=== PATIENT | female | born 1955 | race Caucasian/White ===

== ENCOUNTER 2019-05-10 09:42 | Inpatient (IN) ==
[2019-05-10] MEDS ORDERED: Acetaminophen 325 MG TABLET PO PRN (12:33)
[2019-05-10] MEDS ORDERED: Ondansetron 4 MG/2 ML VIAL IVP PRN (13:33)
[2019-05-10 13:40] LABS: Calcium 7.1 mg/dL (8.6-10.3); Potassium 4.4 mEq/L (3.5-5.1)
[2019-05-10 13:51] LABS: Troponin I 0.07 ng/mL (< 0.04)
[2019-05-10] MEDS ORDERED: Albuterol 2.5 MG/3 ML NEBULIZER IH PRN (13:54)
[2019-05-10 14:28] LABS: ABG Base Excess -12 mEq/L (-2 to 3); ABG HCO3 14 mEq/L (21-27); ABG Oxygen Saturation 83 % (95-98); ABG PCO2 32 mmHg (35-45); ABG PH 7.25 pH Units (7.32-7.45); ABG PO2 54 mmHg (85-104); ABG TCO2 15 mEq/L (20-26)
--- NOTE | 2019-05-10 14:55 | Internal Med History&Physical ---
Date of Encounter: 05/10/19 Time of Encounter: 14:52 Internal Medicine - H&P: HPI Chief complaint: SOB Admitted From: Emergency Dept ([place] [facility]) History of present illness: Zenaida Garcia is a 63 F w hx COPD, diverticulitis s/p sigmoid resection, chronic L leg pain s/p implanted neurostimulator, who p/w SOB. Patient has mumbled speech at times due to oxymask but can nod and articulate some answers. No family present. Patient states that she noticed shortness of breath begin about 2 days ago, feeling in general just malaise since then, working to breath, and eventually had to come to ER today for her symptoms. This is associated with increased cough but without sputum production. She has noticed subjective fever/chills. She also remarks on decreased urine output despite insisting that she has continued to eat and drink. No N/V/D. She denies sick contacts. She also does mention that her stimulator battery and she is having significant pain in her L leg. In the ED, patient vitals T99.1, HR 125, RR 28, SBP 140, satting 87% on 4L. Labs notable for WBC 1.6 w 10% blasts, Hb 15, plt 300, INR 1.7, K 4.5, Cr 2.9, BUN 50, CO2 12, lactate 5, Phos 7.3. ABG showing pH 7.34, pCO2 23, pO2 55 on 4L. Past medical, surgical, social, and family histories reviewed and updated as below, with addition to FHx of lung problems as well as cancer but not leukemia/lymphoma. Past Med Surg Social Fam HX - Past Medical History Medical history: COPD, DVT, other Additional medical history: chronic sciatica Psychiatric history: no psych history - Past Surgical History Surgical History: other Additional surgical history: neurostimulator to back-permanent. bowel resection - Social History Smoking Status: Former smoker Smokeless Tobacco Status: No Alcohol use: none Drug use: none Internal Medicine - H&P: Meds Acetylcysteine [Nac] 600 mg PO DAILY 02/19/18 [History] Budesonide/Formoterol 160/4.5 [Symbicort 160/4.5] 2 puff IH BIDR 02/19/18 [History] Albuterol Neb [Proventil Neb] 2.5 mg IH Q4HR PRN 05/10/19 [History] Albuterol Sulfate [Ventolin Hfa] 2 puff IH Q4H PRN 05/10/19 [History] Tiotropium [Spiriva] 2 puff IH 0700 05/10/19 [History] Allergy/AdvReac Type Severity Reaction Status Date / Time Cephalosporins Allergy Hives Verified 05/10/19 08:17 Penicillins Allergy Hives Verified 05/10/19 08:17 Sulfa (Sulfonamide Allergy Hives Verified 05/10/19 08:17 Antibiotics) All Systems PM: A 10-system review of systems was performed and is negative for pertinent findings except as documented above in the HPI. - Constitutional Vitals: Temp Pulse Resp BP Pulse Ox 97.7 F 107 22 105/64 93 05/10/19 11:57 05/10/19 12:18 05/10/19 12:07 05/10/19 11:57 05/10/19 12:07 Exam: General: good eye contact, cachectic and emaciated, tachypneic, working to breath Head: Atraumatic, normocephalic. Face symmetric Eyes: EOMI, sclerae anicteric ENT: Mucous membranes dry. Normal oral mucosa. Trachea midline. No cervical lymphadenopathy Thoracic: Diminished aeration, diffuse mild expiratory wheezes, does have LLL coarse inspiratory component Cardio: Normal S1 and S2, regular rate, tachycardic Abdomen: Soft, nontender, nondistended Extremities: Warm, well perfused. DP pulses 2+ b/l. No clubbing, cyanosis. No edema. Legs incredibly thin. Skin: Intact. No rashes, bruises, or ulcers Neuro: Awake, fully oriented. Decent memory, concentration, attention. Speech is not fluent, very mumbled even when not on facemask, does comprehend questions and no drooping or motor deficits, CN II-XII grossly intact Internal Med - H&P Results - Labs CBC & Chem 7: 05/10/19 13:05 Labs: BMP 05/10/19 13:05 Sodium 137 Potassium 4.4 Chloride 107 Carbon Dioxide 13 L BUN 50 H Creatinine 2.37 H Glucose 42 L Calcium 7.1 L Cardiac Enzymes 05/10/19 Range/Units 13:05 Troponin I 0.07 H* (< 0.04) ng/mL - ABG Interpretation ABG results: 05/10/19 14:23 ABG pH 7.25 L ABG pCO2 32 L ABG pO2 54 L ABG HCO3 14 L ABG Total CO2 15 L ABG O2 Saturation 83 L ABG Base Excess -12 L - Summary of Assessment and Plan Summary of Assessment and Plan: Zenaida Garcia is a 63 F w hx COPD, diverticulitis s/p sigmoid resection, chronic L leg pain s/p implanted neurostimulator, who p/w SOB, hypoxia, leukocytosis, elevated Cr and lactate, and CXR w bibasilar infiltrates, suggestive of pneumonia causing severe sepsis, ARNOLDO, acute hypoxic respiratory failure. CAP: bibasilar infiltrates on CXR, given empiric aztreonam/levaquin/vanc at OSH ED due to listed allergies to B-lactams (hives) - RVP, procal, UAg's, nasal MRSA - empiric levaquin 750 q48h Acute hypoxic respiratory failure: at one point requiring [place] to maintain sats >88% but on arrival here is oxymask 10 - repeat ABG - supplemental O2 and consider CPAP to ease work of breathing due to worsening acidosis on repeat ABG - IS - treat cause as above - walk test prior to discharge Severe sepsis: SIRS 3/4 (Tmax 99.1), suspected infection as above, lactate elevated - BCx x2 pending - fluid boluses prn hypotension - empiric abx as above COPD in acute exacerbation: severe emphysema on CXR - nebs q4h&prn - prednisone 40 daily x5d, s/p solumedrol 125 in ED - home inhalers ARNOLDO: baseline Cr ~0.6-0.7, on admit is 2.9 - fluids as above - monitor UOP and Cr Lactic acidosis (anion gap metabolic acidosis): 2/2 infection and hypoxia above, expect to improve with oxygenation and fluids and abx - trend lactate Leukopenia: 10% between myelocytes and metamyelocytes - repeat CBC & diff - peripheral smear Coagulopathy: with leukopenia and immature cells above, will recheck INR and check D-dimer and fibrinogen Hyperphosphatemia: with leukopenia and immature cells above, will check uric acid and LDH Elevated troponin: ECG at [place] reads as scattered ST elevations suggestive of pericarditis; patient without CP at all. In context of hypoxia, likely demand ischemia. - tele - trend trops - repeat ECG - echo Chronic pain: stimulator battery , will give low dose oxycodone Underweight: BMI 16, likely 2/2 COPD, nutrition consult PPx: sqh Tele: yes Activity: up ad feroz FEN: regular, no MIVF Lines: PIV Consults: Code: Full Dispo: patient requires inpatient eval and management at this time, anticipate 2-3 days, will be homegoing
[2019-05-10] MEDS ORDERED: *HR* OxyCODONE Immed Rel 5 MG TABLET PO PRN (15:53)
[2019-05-10 18:03] LABS: Magnesium 2.8 mg/dL (1.6-2.6); Phosphorous 6.2 mg/dL (2.7-4.5); Uric Acid 4.2 mg/dL (2.3-7.6)
[2019-05-10 18:10] LABS: Adenovirus Not Detected (Not Detect); Bordetella Pertussis Not Detected (Not Detect); Chlamydophila pneumoniae Not Detected (Not Detect); Coronavirus 229E Not Detected (Not Detect); Coronavirus HKU1 Not Detected (Not Detect); Coronavirus NL63 Not Detected (Not Detect); Coronavirus OC43 Not Detected (Not Detect); Human Metapneumovirus Not Detected (Not Detect); Human Rhinovirus/Enterovirus DETECTED (Not Detect); Influenza A Subtype 2009 H1 Not Detected (Not Detect); Influenza A Untypeable Not Detected (Not Detect); Influenza B Not Detected (Not Detect); Mycoplasma pneumoniae Not Detected (Not Detect); Parainfluenza Virus 1 Not Detected (Not Detect); Parainfluenza Virus 2 Not Detected (Not Detect); Parainfluenza Virus 3 Not Detected (Not Detect); Parainfluenza Virus 4 Not Detected (Not Detect); Respiratory Syncytial Virus Not Detected (Not Detect)
[2019-05-10] MEDS: *HR* Heparin 5,000 UNIT/ML VIAL SQ SCH ×2 (19:01→22:02)
[2019-05-10] MEDS: FentaNYL (PF) 1,000 MCG in 0.9 % Sodium Chloride 80 ML IVC SCH (19:04)
--- NOTE | 2019-05-10 19:11 | Procedure Note ---
Date of procedure: 05/10/19 Pre-op diagnosis: hypotension, sepsis Post-op diagnosis: same Procedure: RIJ CVC Patient prepped and draped in sterile fashion. Maximal 5 point barriers used. Time-out called prior to procedure. No allergies. Indications for CVC met for hypotension and poor access. Chloraprep used. Sterile ultrasound used to identify obvious compressible IJ with carotid visible medially. No local anesthesia. Needle inserted easily into IJ under US, with return of dark venous blood. Guidewire inserted without resistance. US confirms venous placement in long axis view. After quick skin fatimah with scalpel, dilator inserted easily, followed by insertion of CVC over guidewire. Good blood return, easily flushed. Sutured to skin. CXR obtained which confirms appropriate placement in cavoatrial junction, and no PTX. Patient tolerated well with no complications. Anesthesia: IV sedation Surgeon: Rey Romero Was there an certified teacher assistant present: Yes Coal Shoveler: Rivera Cornejo Estimated blood loss (cc): 5 Specimen: none Pathology: none sent Condition: critical Disposition: ICU
[2019-05-10] MEDS ORDERED: 0.9 % Sodium Chloride 1,000 ML IVC SCH (20:30)
[2019-05-10] MEDS: Budesonide/Formoterol 160/4.5 1 PUFF INH IH SCH (20:41)
[2019-05-10] MEDS ORDERED: D5% in 0.45% NACL 1,000 ML IVC SCH (20:45)
[2019-05-10 20:56] LABS: Bilirubin,Urine Small (Negative); Blood,Urine Large (Negative); Clarity,Urine Turbid (Clear); Color,Urine Dark Yellow (Yellow); Glucose,Urine (UA) Normal (Normal); Ketones,Urine Negative (Negative); Leukocyte Esterase,Urine Negative (Negative); Nitrite,Urine Negative (Negative); PH,Urine 5.5 pH Units (5.0-8.0); Protein,Urine 100 mg/dL (Neg-Trace); Specific Gravity,Urine 1.024 (1.010-1.025); Urobilinogen,Urine Normal (Normal)
[2019-05-10] MEDS ORDERED: Vancomycin 500 MG in 0.9 % Sodium Chloride 250 ML IVPB SCH (21:00)
[2019-05-10 21:06] LABS: Hyaline Casts,Urine Few per lpf (None-Few); Squamous Epithelial Cell,Urine Many per lpf (None-Few)
[2019-05-10 21:15] LABS: Mean Corpuscular Hemoglobin 28.8 pg (28.0-33.3)
[2019-05-10 21:16] LABS: Amorphous Sediment,Urine Moderate (Few); Bacteria,Urine Many per hpf (None-Few)
[2019-05-10 21:16] LABS: Hematocrit 37.4 % (35.3-44.9); Hemoglobin 10.9 g/dL (11.5-15.4); Mean Corpuscular HGB Conc 29.1 g/dL (31.6-35.5); Mean Corpuscular Volume 98.9 fL (83.0-100.0); Mean Platelet Volume 9.8 fL (9.4-12.4); Monocytes # 0.1 K/mcL (0.0-1.3); Platelet Count 244 K/mcL (140-400); Red Blood Count 3.78 M/mcL (3.82-4.97); Red Cell Distribution Width 16.9 % (11.5-14.5); White Blood Count 1.3 K/mcL (4.3-11.1)
[2019-05-10 21:25] LABS: INR 2.4; Prothrombin Time 27.1 Seconds (9.4-12.1)
[2019-05-10 21:39] LABS: Calcium 6.2 mg/dL (8.6-10.3); Potassium 5.7 mEq/L (3.5-5.1)
[2019-05-10] MEDS: *HR* Dextrose 50 % in Water (Syg) 50 ML SYRINGE IVP STA (21:43)
[2019-05-10 22:16] LABS: Eosinophils # 0.1 K/mcL (0.0-0.6); Lymphocytes # 0.3 K/mcL (0.6-4.6); Neutrophils # 0.9 K/mcL (1.6-8.9)
[2019-05-10 22:18] LABS: Anisocytosis 1+ (Not Present)
[2019-05-10 22:19] LABS: Acanthocytes 1+ (Not Present); Platelet Estimate Normal (Normal)
[2019-05-10] MEDS ORDERED: Calcium Gluconate 2,000 MG in 0.9 % Sodium Chloride 100 ML IVPB ONE (23:09)
[2019-05-11] MEDS: FentaNYL (PF) 1,000 MCG in 0.9 % Sodium Chloride 80 ML IVC SCH ×3 (00:57→21:21)
[2019-05-11] MEDS ORDERED: *HR* Dextrose 50 % in Water (Syg) 50 ML SYRINGE IVP ONE ×3 (04:07→12:42)
[2019-05-11] MEDS ORDERED: 0.9 % Sodium Chloride 1,000 ML IVC ONE ×2 (04:08→05:34)
[2019-05-11] MEDS ORDERED: Artificial Tears SOLN 15 ML BOTTLE BOTH EYES PRN (04:17)
[2019-05-11] MEDS ORDERED: Naloxone 0.4 MG/ML INJ IVP PRN (04:19)
[2019-05-11] MEDS: Norepinephrine 4 MG in 0.9 % Sodium Chloride 250 ML IVC SCH ×2 (04:38→10:49)
[2019-05-11] MEDS ORDERED: Sodium Bicarbonate 50 MEQ/50 ML VIAL ONE (04:46)
[2019-05-11] MEDS ORDERED: *HR* LORazepam 2 MG/ML VIAL ONE (04:48)
[2019-05-11 04:49] LABS: ABG Base Excess -18 mEq/L (-2 to 3); ABG HCO3 14 mEq/L (21-27); ABG Oxygen Saturation 97 % (95-98); ABG PCO2 62 mmHg (35-45); ABG PH 6.95 pH Units (7.32-7.45); ABG PO2 137 mmHg (85-104); ABG TCO2 15 mEq/L (20-26); Blood Gas Modality ASSIST CONTROL; Blood Gas PEEP 5 cm H2O; Blood Gas VT 400 cc
[2019-05-11] MEDS ORDERED: *HR* LORazepam 2 MG/ML VIAL IVP ONE (04:50)
[2019-05-11 04:56] LABS: Mean Platelet Volume 9.7 fL (9.4-12.4); Nucleated Red Blood Cells 4.5 /100 WBC (0); White Blood Count 1.6 K/mcL (4.3-11.1)
[2019-05-11 04:57] LABS: Hematocrit 30.5 % (35.3-44.9); Hemoglobin 8.3 g/dL (11.5-15.4); Mean Corpuscular HGB Conc 27.2 g/dL (31.6-35.5); Mean Corpuscular Hemoglobin 28.5 pg (28.0-33.3); Mean Corpuscular Volume 104.8 fL (83.0-100.0); Platelet Count 226 K/mcL (140-400); Red Blood Count 2.91 M/mcL (3.82-4.97); Red Cell Distribution Width 17.2 % (11.5-14.5)
[2019-05-11 04:59] LABS: VBG HCO3 14 mEq/L (21-27); VBG PCO2 82 mmHg (41-51); VBG PH 6.84 pH Units (7.32-7.42); VBG PO2 74 mmHg (25-50)
[2019-05-11] MEDS ORDERED: 0.9 % Sodium Chloride 1,000 ML ONE ×2 (05:11→05:21)
[2019-05-11 05:17] LABS: Albumin 2.1 g/dL (3.5-5.7); Albumin/Globulin Ratio 1.1 (1.1-2.2); Bilirubin,Direct 0.2 mg/dL (0.0-0.2); Bilirubin,Indirect 0.2 mg/dL (0.0-1.2); Bilirubin,Total 0.4 mg/dL (0.3-1.0); Phosphorous 10.1 mg/dL (2.7-4.5); Total Protein 4.1 g/dL (6.4-8.9)
[2019-05-11 05:19] LABS: Calcium 6.1 mg/dL (8.6-10.3); INR 2.8; Magnesium 2.8 mg/dL (1.6-2.6); Potassium 7.7 mEq/L (3.5-5.1); Prothrombin Time 31.5 Seconds (9.4-12.1); Troponin I 0.16 ng/mL (< 0.04)
[2019-05-11] MEDS ORDERED: Sodium Bicarbonate 50 MEQ/50 ML VIAL IVP ONE (05:24)
[2019-05-11] MEDS ORDERED: Albuterol 2.5 MG/3 ML NEBULIZER IH ONE (05:26)
[2019-05-11] MEDS ORDERED: Calcium Gluconate 2,000 MG in 0.9 % Sodium Chloride 100 ML IVPB ONE (05:28)
[2019-05-11] MEDS ORDERED: Insulin Human Regular 5 UNIT, Sodium Bicarbonate 50 MEQ in D10% in Water 500 ML IVC ONE (05:28)
[2019-05-11 05:32] LABS: Lymphocytes # 0.5 K/mcL (0.6-4.6); Monocytes # 0.2 K/mcL (0.0-1.3)
[2019-05-11 05:33] LABS: Anisocytosis 1+ (Not Present); Burr Cells 1+ (Not Present); Platelet Estimate Normal (Normal)
[2019-05-11] MEDS: *HR* Heparin 5,000 UNIT/ML VIAL SQ SCH (05:43)
[2019-05-11] MEDS ORDERED: 0.9 % Sodium Chloride 500 ML IV ONE (05:44)
[2019-05-11] MEDS ORDERED: 0.9 % Sodium Chloride 500 ML IVC ONE (05:45)
--- NOTE | 2019-05-11 06:04 | Event Note ---
<Michael Hahn - Last Filed: 05/11/19 06:15> Date of Encounter: 05/11/19 Time of Encounter: 05:56 Resident physician was called to bedside due to patient becoming hypotensive suddenly this morning. The patient has had soft blood pressures in the 90/70 range while maintaining a map of greater than 65 throughout the evening. He was noted that she had mottling in her lower extremities which was somewhat relieved with blankets and a bear hugger, however along with the patient's hypotension she was noted to have mottling in her upper extremities as well and became very pale. 1 L saline bolus was initiated immediately with Levophed ordered, an ABG was done stat and morning labs had been drawn just prior to this episode. It appeared that the patient's right pupil was approximately 4 mm with left pupil being 2 mm and sluggish to reactivity, was noted with propofol drip was decreased due to hypotension however the patient appeared to be waking up and was biting at the tube and thus propofol was reinitiated. During this time the patient began to exhibit seizure activity with right-sided upper and lower ext remity tremor as well as ocular gyration. 2 mg of Ativan were given immediately along with the increase in propofol which appeared to stop the seizure activity. Patient was taken for a stat head CT and chest x-ray. Head CT read by comes radiology as no acute intracranial pathology, chest x-ray shows continuation of multifocal pneumonia. The patient's ABG was noted to show a respiratory acidosi s with a pH of 6.95, PCO2 of 62 and a bicarbonate of 14. One amp of bicarbonate was given immediately, the patient's potassium was noted to be 7.7 with peaked T waves on EKG and no further abnormalities, 15 mL albuterol were given in addition to initiating insulin/glucose drip at 2 g of calcium gluconate. Patient's creatinine was found to be elevated at 2.7 which is not typical for this patient her baseline nephrology was consulted regarding the need for emergent dialysis and states that they agree with our plan for medical management at this time and have no further recommendations for intervention. Troponin was found to be elevated however there are no ischemic changes noted on EKG. Nephrology and neurology consults were placed. Family at bedside were notified of the patient's expected course and they will be discussing their understanding of the patient's wishes regarding further CODE STATUS. <Wilton Banda - Last Filed: 05/11/19 06:58> Date of Encounter: 05/11/19 - Attending Attestation I saw evaluated and examined this patient and reviewed objective data including labs and my medical decision-making was reviewed with the Resident Physician. I agree with the documented findings, disposition and treatment plan as described except to any changes set forth below. We independently had leei-[id number] contact with the patient.
[2019-05-11] MEDS: Vasopressin 40 UNIT in D5% in Water 100 ML IVC SCH ×2 (06:41→23:35)
[2019-05-11 06:42] LABS: ABG Base Excess -14 mEq/L (-2 to 3); ABG HCO3 15 mEq/L (21-27); ABG Oxygen Saturation 100 % (95-98); ABG PCO2 49 mmHg (35-45); ABG PO2 241 mmHg (85-104); ABG TCO2 17 mEq/L (20-26); Blood Gas Modality ASSIST CONTROL; Blood Gas PEEP 5 cm H2O; Blood Gas VT 450 cc
[2019-05-11] MEDS ORDERED: methylPREDNISolone 125 MG/2 ML VIAL IVP ONE (07:56)
[2019-05-11 08:00] LABS: ABG Base Excess -15 mEq/L (-2 to 3); ABG HCO3 13 mEq/L (21-27); ABG Oxygen Saturation 89 % (95-98); ABG PCO2 40 mmHg (35-45); ABG PH 7.13 pH Units (7.32-7.45); ABG PO2 74 mmHg (85-104); ABG TCO2 14 mEq/L (20-26); Blood Gas Modality VC; Blood Gas PEEP 8 cm H2O; Blood Gas VT 450 cc
[2019-05-11] MEDS ORDERED: Albuterol 2.5 MG/3 ML NEBULIZER IH PRN (08:00)
[2019-05-11] MEDS: Tiotropium 18 MCG inhalation IH SCH (08:44)
[2019-05-11] MEDS: Chlorhexidine Rinse 15 ML MOUTHWASH MM SCH ×2 (08:47→20:32)
[2019-05-11] MEDS: Artificial Tears SOLN 15 ML BOTTLE BOTH EYES SCH ×5 (08:47→23:34)
[2019-05-11] MEDS: Ipratropium/Albuterol Neb 3 ML IH SCH ×5 (08:55→23:51)
[2019-05-11] MEDS: Budesonide/Formoterol 160/4.5 1 PUFF INH IH SCH ×2 (08:55→19:48)
[2019-05-11 09:17] LABS: Calcium 6.5 mg/dL (8.6-10.3); Potassium 5.4 mEq/L (3.5-5.1); Troponin I 0.18 ng/mL (< 0.04)
--- NOTE | 2019-05-11 09:25 | Pulmonology Consult Note ---
<Delmar Gill W - Last Filed: 05/11/19 10:26> Date of Encounter: 05/11/19 Medications and Allergies Acetylcysteine [Nac] 600 mg PO DAILY 02/19/18 [History] Budesonide/Formoterol 160/4.5 [Symbicort 160/4.5] 2 puff IH BIDR 02/19/18 [History] Albuterol Neb [Proventil Neb] 2.5 mg IH Q4HR PRN 05/10/19 [History] Albuterol Sulfate [Ventolin Hfa] 2 puff IH Q4H PRN 05/10/19 [History] Tiotropium [Spiriva] 2 puff IH 0700 05/10/19 [History] Allergy/AdvReac Type Severity Reaction Status Date / Time Cephalosporins Allergy Hives Verified 05/10/19 08:17 Penicillins Allergy Hives Verified 05/10/19 08:17 Sulfa (Sulfonamide Allergy Hives Verified 05/10/19 08:17 Antibiotics) All Systems: The remainder of the systems were reviewed and are negative Physical Examination Vital Signs: Vital Signs, Last 4 Hours Temp Pulse Resp BP Pulse Ox 05/11/19 08:55 24 89/51 94 05/11/19 08:00 99 24 121/66 96 05/11/19 07:38 97.6 F Ventilator Settings Ventilator Settings: Ventilator Settings, Last 8 Hours Ventilator Tidal Volume 450 Setting Ventilator Tidal Volume 450 Setting Ventilator Tidal Volume 450 Setting Ventilator Tidal Volume 450 Setting Ventilator Tidal Volume 450 Setting Ventilator Tidal Volume 450 Setting Ventilator Tidal Volume 400 Setting Ventilator Tidal Volume 450 Setting Ventilator Tidal Volume 450 Setting Ventilator Tidal Volume 400 Setting Ventilator Tidal Volume 400 Setting Ventilator Tidal Volume 400 Setting Ventilator Respiratory Rate 24 Setting Ventilator Respiratory Rate 24 Setting Ventilator Respiratory Rate 22 Setting Ventilator Respiratory Rate 22 Setting Ventilator Respiratory Rate 16 Setting Ventilator Respiratory Rate 16 Setting Ventilator Respiratory Rate 14 Setting Ventilator Respiratory Rate 14 Setting Ventilator Respiratory Rate 16 Setting Ventilator Respiratory Rate 14 Setting Ventilator Respiratory Rate 14 Setting Ventilator Respiratory Rate 14 Setting Actual Respiratory Rate 24 Actual Respiratory Rate 24 Actual Respiratory Rate 22 Actual Respiratory Rate 16 Actual Respiratory Rate 16 Actual Respiratory Rate 15 Actual Respiratory Rate 15 Actual Respiratory Rate 14 Positive End Expiratory 8 Pressure Positive End Expiratory 8 Pressure Positive End Expiratory 8 Pressure Positive End Expiratory 8 Pressure Positive End Expiratory 5 Pressure Positive End Expiratory 5 Pressure Positive End Expiratory 5 Pressure Positive End Expiratory 5 Pressure Positive End Expiratory 5 Pressure Positive End Expiratory 5 Pressure Positive End Expiratory 5 Pressure Peak Inspiratory Airway 30 Pressure Peak Inspiratory Airway 29 Pressure Peak Inspiratory Airway 28 Pressure Peak Inspiratory Airway 22 Pressure Peak Inspiratory Airway 15 Pressure Peak Inspiratory Airway 15 Pressure Peak Inspiratory Airway 14 Pressure Peak Inspiratory Airway 12 Pressure Results - Laboratory Findings CBC and BMP: 05/11/19 04:28 05/11/19 08:22 ABG ABG pH 7.13 pH Units (7.32-7.45) L* 05/11/19 07:55 ABG pCO2 40 mmHg (35-45) 05/11/19 07:55 ABG pO2 74 mmHg (85-104) L D 05/11/19 07:55 ABG O2 Saturation 89 % (95-98) L 05/11/19 07:55 PT/INR, D-dimer PT 31.5 Seconds (9.4-12.1) H 05/11/19 04:28 D-Dimer 5867 ng/mLFEU (0-500) H 05/10/19 20:54 Abnormal lab findings: Abnormal lab results WBC 1.6 K/mcL (4.3-11.1) L 05/11/19 04:28 RBC 2.91 M/mcL (3.82-4.97) L 05/11/19 04:28 Hgb 8.3 g/dL (11.5-15.4) L D 05/11/19 04:28 Hct 30.5 % (35.3-44.9) L 05/11/19 04:28 MCV 104.8 fL (83.0-100.0) H 05/11/19 04:28 MCHC 27.2 g/dL (31.6-35.5) L 05/11/19 04:28 RDW 17.2 % (11.5-14.5) H 05/11/19 04:28 Band Neutrophils % 18.0 % (0-4) H 05/11/19 04:28 Metamyelocytes % 2.0 % (0) H 05/11/19 04:28 Neutrophils # 1.0 K/mcL (1.6-8.9) L 05/11/19 04:28 Lymphocytes # 0.5 K/mcL (0.6-4.6) L 05/11/19 04:28 Nucleated RBCs/100 WBC 4.5 /100 WBC (0) H 05/11/19 04:28 Anisocytosis 1+ (Not Present) A 05/11/19 04:28 [place] Cells 1+ (Not Present) A 05/11/19 04:28 Acanthocytes (Spur) 1+ (Not Present) A 05/10/19 20:54 PT 31.5 Seconds (9.4-12.1) H 05/11/19 04:28 APTT 54.7 Seconds (26.0-36.0) H 05/10/19 22:22 Fibrinogen 792 mg/dL (169-393) H* 05/10/19 20:54 D-Dimer 5867 ng/mLFEU (0-500) H 05/10/19 20:54 ABG pH 7.13 pH Units (7.32-7.45) L* 05/11/19 07:55 ABG pCO2 49 mmHg (35-45) H 05/11/19 06:38 ABG pO2 74 mmHg (85-104) L D 05/11/19 07:55 ABG HCO3 13 mEq/L (21-27) L 05/11/19 07:55 ABG Total CO2 14 mEq/L (20-26) L 05/11/19 07:55 ABG O2 Saturation 89 % (95-98) L 05/11/19 07:55 ABG Base Excess -15 mEq/L (-2 to 3) L 05/11/19 07:55 VBG pH 6.84 pH Units (7.32-7.42) L* 05/11/19 04:54 VBG pCO2 82 mmHg (41-51) H* 05/11/19 04:54 VBG pO2 74 mmHg (25-50) H 05/11/19 04:54 VBG HCO3 14 mEq/L (21-27) L 05/11/19 04:54 Sodium 129 mEq/L (136-145) L D 05/11/19 04:28 Potassium 5.4 mEq/L (3.5-5.1) H D 05/11/19 08:22 Carbon Dioxide 14 mEq/L (23-29) L 05/11/19 08:22 BUN 58 mg/dL (8-23) H 05/11/19 08:22 Creatinine 2.56 mg/dL (0.60-1.20) H 05/11/19 08:22 Est GFR ( Amer) 23 (> 60) L 05/11/19 08:22 Est GFR (Non-Af Amer) 19 (> 60) L 05/11/19 08:22 Glucose 155 mg/dL (70-105) H 05/11/19 08:22 POC Glucose 201 mg/dL (70-99) H 05/11/19 04:55 Calculated Osmolality 301 (280-300) H 05/11/19 08:22 Lactic Acid 3.1 mmol/L (0.5-2.2) H 05/11/19 04:28 Calcium 6.5 mg/dL (8.6-10.3) L 05/11/19 08:22 Phosphorus 10.1 mg/dL (2.7-4.5) H 05/11/19 04:28 Magnesium 2.8 mg/dL (1.6-2.6) H 05/11/19 04:28 AST 177 Units/L (13-39) H 05/11/19 04:28 Creatine Kinase 71994 Units/L (30-223) H 05/11/19 04:28 Troponin I 0.18 ng/mL (< 0.04) H* 05/11/19 08:22 Serum Total Protein 4.1 g/dL (6.4-8.9) L 05/11/19 04:28 Albumin 2.1 g/dL (3.5-5.7) L 05/11/19 04:28 Globulin 2.0 g/dL (2.4-3.5) L 05/11/19 04:28 Procalcitonin > 100.00 ng/mL (0.00-0.15) H 05/10/19 16:22 Urine Clarity Turbid (Clear) A 05/10/19 20:38 Urine Protein 100 mg/dL (Neg-Trace) H 05/10/19 20:38 Urine Blood Large (Negative) H 05/10/19 20:38 Urine Bilirubin Small (Negative) H 05/10/19 20:38 Urine Microscopic RBC 3-5 per hpf (0-3) H 05/10/19 20:38 Urine Microscopic WBC 5-15 per hpf (0-3) H 05/10/19 20:38 Ur Squamous Epith Cells Many per lpf (None-Few) H 05/10/19 20:38 Amorphous Sediment Moderate (Few) H 05/10/19 20:38 Urine Bacteria Many per hpf (None-Few) H 05/10/19 20:38 Ur Culture Indicated? YES (NO) A 05/10/19 20:38 Entero/Rhino (PCR) DETECTED (Not Detect) A 05/10/19 17:00 - Microbiology Findings Microbiology Findings: Microbiology, Last 48 Hours 05/10/19 20:38 Urine Culture - Preliminary Urine,Catheterized (Straight) Culture is incubating. - Clinical Findings Intake & Output: Intake & Output 05/10/19 05/11/19 05/11/19 23:59 07:59 15:59 Intake Total 1036 / 1036 4354.05 / 4386.05 32 / 4386.05 Output Total 195 / 195 200 / 200 Balance 841 / 841 4154.05 / 4186.05 32 / 4186.05 Consult Discharge Plan - Plan Referrals: Donna Patterson MD [Primary Care Provider] - - Attending Attestation I examined this patient and my medical decision-making was reviewed with the Resident Physician. I agree with the documented findings, disposition and treatment plan as described except to the extent set forth below. We independently had [id number] contact with the patient I spent 63min of Critical Care time with this patient. It involved decision making of high complexity to assess, manipulate, and support vital organ system failure and/or to prevent further life threatening deterioration of the patient's condition. The time involved in the performance of separately reportable procedures was not counted toward critical care time. Patient seen and examined at bedside Labs, radiology, chart personally reviewed. Management was reviewed during multidisciplinary critical care rounds. ORDER ENTRY REPRESENTATIVE: Acute toxic/metabolic encephalopathy now sedated on vent Pulm: Acute on chronic hypoxic hypercapnic respiratory failure secondary to pneumonia with COPD exacerbation we will increase her minute ventilation to accommodate for metabolic acidosis continue low tidal volume ventilatory strategy her peak and plateau pressures are acceptable COPD management with bronchodilators and steroids Cards: Distributive shock secondary to sepsis with lactic acidosis and multiorgan dysfunction syndrome (MODS) she is on vasopressor support I performed bedside ultrasonography and evaluated her IVC under positive pressure which was noted to have greater than 50% collapsibility with her breathing cycle indicating volume responsiveness and additional crystalloid bolus was ordered. Continues to assess for her volume status and trend lactate goal map around 65 GI: GI prophylaxis while on vent she has abdominal distention and sending for CT of the abdomen Nutrition: nothing by mouth for now Renal: Acute kidney injury remains and uric we will check CPK she has life- threatening hyperkalemia and this is been medically managed we will consult nephrology high likelihood patient will need renal replacement therapy. UOP Monitored, Cont to Trend sCr and monitor Electrolytes. ID: septic shock of unclear etiology likely pneumonia possibly of viral infection was bacterial coinfection cannot rule out intra-abdominal process on broad-spectrum antibiotics I have added double coverage for Pseudomonas and anaerobic coverage given the severity of illness and Procardia also 200 greater than 100. Heme/Onc: Mechanical DVT prophylaxis given she has mild coagulopathy likely secondary to her critical illness platelets are stable Endo: Glucose Monitored Integ/MSK: Skin Care per routine ICU Nursing Protocol to prevent ulcers. Lines: All lines examined without evidence of infection : Dispo: Monitor in ICU for critical illness CODE: Full Code. The patient's next of kin including her 2 nephews were present in the room along with the nephews of who is a ICU nurse. Met with them because patient does not have any family close to her except those in the room and has an estranged son but they have not spoken in many years and negative family feels that he may in fact be incarcerated. The patient did not have any specific conversations regarding goals of care are advanced directives and a situation like this and so I explained that it would be reasonable to pursue aggressive measures at least for 48 hours although she is critically ill with prognosis guarded at best. I went over the different options for management including comfort measures all the way to full aggressive measures and she will remain full code at this time. Likely psych social worker and palliative care consultation based upon clinical course and QUESTIONS were answered at the bedside.The patient is unable or incompetent to participate in giving a history and/or making treatment decisions. The discussion was necessary for determining treatment decision. This discussion took place in the ICU. The total meeting time was [20 minutes] <Rey Romero - Last Filed: 05/11/19 12:52> Date of Encounter: 05/11/19 Time of Encounter: 09:44 Assessment and Plan (1) Acute respiratory failure Current Visit: Yes Status: Acute Presented to ICU from floor with acute respiratory failure. Likely 2/2 to pneumonia and septic shock. Also likely COPD exacerbation. CXR showed diffuse airspace opacities, worst in L lung base. Noted to have WBC of 1.2, lactate 2.4, PCT >100. Plan: - Intubated and sedated on fentanyl/propofol, vent bundle ordered - Started vanc/levaquin on 05/10; added aztreonam and flagyl 05/11 - Scheduled bronchodilators and steroids - Daily ABGs, cont to monitor vitals and respiratory status Qualifiers: Respiratory failure complication: hypoxia and hypercapnia Qualified Code(s): J96.01 - Acute respiratory failure with hypoxia; J96.02 - Acute respiratory failure with hypercapnia (2) Acute metabolic encephalopathy Current Visit: Yes Status: Acute Worsening mental status associated with worsening respiratory status and septic shock. Likely due to acute resp failure, hyperkalemia, lactic acidosis, ARNOLDO with increased Cr, hypoglycemia Intubated/sedated for resp failure. Plan: - On fentanyl/propofol - Cont to treat infection and electrolyte abnormalities - Cont monitoring glucose, hypoglycemia protocol - Cont to monitor mental status (3) Septic shock Current Visit: Yes Status: Acute Septic shock 2/2 to PNA, acute resp failure. Hypotensive. Received 4 L NS bolus for blood pressure support. Started on levophed for hypotension. R IJ CVC placed. Elevated Cr, LFTs, troponins indicated shock with multiple organ dysfunction. Bedside US showed greater than 50% collapsibility, fluid responsive. Noted to have WBC of 1.2, lactate 2.4, PCT >100. Plan: - On vanc, levaquin, aztreonam, flagyl for abx coverage - Possible abdominal process, ischemic colitis on CT scan - Surgery consulted for evaluation - Blood and urine cultures pending, showing gram positive cocci - Cont to monitor trops, BMP, and LFTs (4) Bilateral pneumonia Current Visit: Yes Status: Acute PNA noted on CXR. Presented with resp distress. Resp panel positive for enter/rhinovirus. Likely bacterial superinfection. Plan: - See plan above for resp failure and septic shock Qualifiers: Pneumonia type: due to unspecified organism Lung location: unspecified part of lung Qualified Code(s): J18.9 - Pneumonia, unspecified organism (5) ARNOLDO (acute kidney injury) Current Visit: Yes Status: Acute ARNOLDO with Cr of 2.37, now 2.56. Likely d/t hypoperfusion from septic shock. Patient was also hyperkalemic to 7.7 at admission to ICU. Plan: - Nephrology consulted, will consider dialysis for hyperk - Will start 0.45% NaCl with 150 meQ bicarb with D50 - Will cont to monitor BMP - Avoid nephrotoxins, use renal dosing for meds (6) Hyperkalemia Current Visit: Yes Status: Acute Potassium 7.7 this morning with peaked T waves on EKG. Stabilized with Ca, albuterol, insulin/glucose. Plan: - Nephrology consulted, will consider dialysis - Gave 2g Ca gluconate - Gave 15 mg kayexalate - Trend BMP q6H, monitor K (7) COPD exacerbation Current Visit: Yes Status: Acute Exacerbation of chronic airway disease. Plan: - Currently intubated/sedated - On inhalers/steroids (8) Leukopenia Current Visit: Yes Status: Acute Noted to have initial WBC of 1.6. Concerning for possible malignancy, immunocompromise. Plan: - Cont to trend CBC - Peripheral smear Qualifiers: Leukopenia type: unspecified Qualified Code(s): D72.819 - Decreased white blood cell count, unspecified (9) Coagulopathy Current Visit: Yes Status: Acute Elevated INR of 2.8. Likely related to septic shock. Fibrinogen 792, dimer 5867. Plan: - Will give 3 doses of 5mg Vit K over next 3 days - Monitor coags (10) Elevated troponin Current Visit: Yes Status: Acute Elevated troponins likely d/t shock and hypoperfusion. Possible demand ischemia. Echo showed LVEF 60-65%, no pHTN. Plan: - Trend troponins (11) Rhabdomyolysis Current Visit: Yes Status: Acute Elevated CPK of 12,206. Plan: - Nephro consulted - Trend CPK - Cont MIVFs as above Qualifiers: Rhabdomyolysis type: non-traumatic Qualified Code(s): M62.82 - Rhabdomyolysis (12) DVT prophylaxis Current Visit: Yes Status: Acute DVT PPX: EPCDs Analgesia: fentanyl Sedation: propofol SBT: none Glycemic control: SSI Bowl regimen: none Activity: intubated/sedated Fluids: none Electrolytes: replete as necessary Nutrition: NPO GI ppx: PPI Lines: 2x PIVs, R IJ CVC, ET, OG, duffy Consults: nephro, neuro, pulm, vascular Code: FULL Dispo: ICU History of Present Illness Consult date: 05/11/19 Requesting physician: Rivera Cornejo Reason for consult: dyspnea Chief complaint: Acute respiratory failure, septic shock, PNA History of present illness: Patient is a 63-year-old female with a past medical history of COPD, diverticulitis status post sigmoid resection, chronic left leg pain with implanted neurostimulator who presented with shortness of breath. Per chart review, patient said that she noticed the shortness of breath began about 2 days ago and was feeling general malaise. She experienced increasing work of breathing and went to the ER for her symptoms. She endorsed a cough, but no sputum production. Reported subjective fever and chills. Also mentions she has had decreased urine output, however good food and fluid intake. Denies any nausea, vomiting, constipation, diarrhea. She denies any recent sick contacts. In the emergency department, patient was afebrile, HR 125, RR 28, SGPT 140, satting 87% on 4 L. Labs were notable for WBC 1.6, lactate 5, hemoglobin 15, platelets 300, potassium 4.5, CR 2.9. ABG showing pH 7.34, pCO2 23, pO2 55 on 4L. after the patient had been admitted to the floor, patient began to decompensate and had worsening respiratory distress. Patient desatted to 70% and was hypotensive with systolic 80s. A rapid response was called. Patient was intubated for respiratory failure. Found to also have glucose 16 upon arrival and was given an amp of D50. Due to poor IV access and hypotension, right IJ CVC was placed without complications. This morning, the patient continues to be hypotensive. Was started on levophed. Intubated and sedated on fentanyl and propofol. Unresponsive. In addition to vancomycin and Levaquin, aztreonam and Flagyl were started. CT chest abdomen and pelvis was obtained. Neurology was consulted for hyperkalemia and worsening kidney function. We will continue to trend laboratory studies every 6 hours. Patient's family was at bedside this morning. After a brief discussion, patient is to remain full code and will have aggressive measures for at least the next 48-72 hours. May revisit conversation with palliative for further goals of care discussion if prognosis remains guarded. Past Med Surg Social Fam HX - Past Medical History Source: unable to obtain, old records reviewed, nursing notes reviewed Medical history: COPD, DVT, other Additional medical history: chronic sciatica Psychiatric history: no psych history - Past Surgical History Surgical History: other Additional surgical history: neurostimulator to back-permanent. bowel resection - Social History Smoking Status: Former smoker Smokeless Tobacco Status: No Alcohol use: none Drug use: none ROS unobtainable: due to endotracheal tube All Systems: The remainder of the systems were reviewed and are negative Physical Examination Vital Signs: Vital Signs, Last 4 Hours Temp Pulse Resp BP Pulse Ox 05/11/19 08:00 99 24 121/66 96 05/11/19 07:38 97.6 F 05/11/19 06:00 102 16 127/46 96 05/11/19 05:00 120 16 120/36 99 General appearance: no acute distress (intubated/sedated) Eyes: nonicteric ENT: oropharynx moist Neck: supple Effort: normal Inspection: normal Auscultation: bilateral: clear Cardiovascular: regular rate and rhythm Gastrointestinal: normoactive bowel sounds, non-distended Integumentary: normal Extremities: no cyanosis, no edema, no clubbing Musculoskeletal: no deformities, ROM normal unable to assess due to mental status Ventilator Settings Ventilator Settings: Ventilator Settings, Last 8 Hours Ventilator Tidal Volume 450 Setting Ventilator Tidal Volume 450 Setting Ventilator Tidal Volume 450 Setting Ventilator Tidal Volume 450 Setting Ventilator Tidal Volume 450 Setting Ventilator Tidal Volume 400 Setting Ventilator Tidal Volume 450 Setting Ventilator Tidal Volume 450 Setting Ventilator Tidal Volume 400 Setting Ventilator Tidal Volume 400 Setting Ventilator Tidal Volume 400 Setting Ventilator Tidal Volume 400 Setting Ventilator Tidal Volume 400 Setting Ventilator Respiratory Rate 24 Setting Ventilator Respiratory Rate 22 Setting Ventilator Respiratory Rate 22 Setting Ventilator Respiratory Rate 16 Setting Ventilator Respiratory Rate 16 Setting Ventilator Respiratory Rate 14 Setting Ventilator Respiratory Rate 14 Setting Ventilator Respiratory Rate 16 Setting Ventilator Respiratory Rate 14 Setting Ventilator Respiratory Rate 14 Setting Ventilator Respiratory Rate 14 Setting Ventilator Respiratory Rate 14 Setting Ventilator Respiratory Rate 14 Setting Actual Respiratory Rate 24 Actual Respiratory Rate 22 Actual Respiratory Rate 16 Actual Respiratory Rate 16 Actual Respiratory Rate 15 Actual Respiratory Rate 15 Actual Respiratory Rate 14 Actual Respiratory Rate 15 Actual Respiratory Rate 15 Positive End Expiratory 8 Pressure Positive End Expiratory 8 Pressure Positive End Expiratory 8 Pressure Positive End Expiratory 5 Pressure Positive End Expiratory 5 Pressure Positive End Expiratory 5 Pressure Positive End Expiratory 5 Pressure Positive End Expiratory 5 Pressure Positive End Expiratory 5 Pressure Positive End Expiratory 5 Pressure Positive End Expiratory 5 Pressure Positive End Expiratory 5 Pressure Peak Inspiratory Airway 29 Pressure Peak Inspiratory Airway 28 Pressure Peak Inspiratory Airway 22 Pressure Peak Inspiratory Airway 15 Pressure Peak Inspiratory Airway 15 Pressure Peak Inspiratory Airway 14 Pressure Peak Inspiratory Airway 12 Pressure Peak Inspiratory Airway 13 Pressure Peak Inspiratory Airway 10 Pressure Results - Laboratory Findings CBC and BMP: 05/11/19 04:28 05/11/19 08:22 ABG ABG pH 7.13 pH Units (7.32-7.45) L* 05/11/19 07:55 ABG pCO2 40 mmHg (35-45) 05/11/19 07:55 ABG pO2 74 mmHg (85-104) L D 05/11/19 07:55 ABG O2 Saturation 89 % (95-98) L 05/11/19 07:55 PT/INR, D-dimer PT 31.5 Seconds (9.4-12.1) H 05/11/19 04:28 D-Dimer 5867 ng/mLFEU (0-500) H 05/10/19 20:54 Abnormal lab findings: Abnormal lab results WBC 1.6 K/mcL (4.3-11.1) L 05/11/19 04:28 RBC 2.91 M/mcL (3.82-4.97) L 05/11/19 04:28 Hgb 8.3 g/dL (11.5-15.4) L D 05/11/19 04:28 Hct 30.5 % (35.3-44.9) L 05/11/19 04:28 MCV 104.8 fL (83.0-100.0) H 05/11/19 04:28 MCHC 27.2 g/dL (31.6-35.5) L 05/11/19 04:28 RDW 17.2 % (11.5-14.5) H 05/11/19 04:28 Band Neutrophils % 18.0 % (0-4) H 05/11/19 04:28 Metamyelocytes % 2.0 % (0) H 05/11/19 04:28 Neutrophils # 1.0 K/mcL (1.6-8.9) L 05/11/19 04:28 Lymphocytes # 0.5 K/mcL (0.6-4.6) L 05/11/19 04:28 Nucleated RBCs/100 WBC 4.5 /100 WBC (0) H 05/11/19 04:28 Anisocytosis 1+ (Not Present) A 05/11/19 04:28 [place] Cells 1+ (Not Present) A 05/11/19 04:28 Acanthocytes (Spur) 1+ (Not Present) A 05/10/19 20:54 PT 31.5 Seconds (9.4-12.1) H 05/11/19 04:28 APTT 54.7 Seconds (26.0-36.0) H 05/10/19 22:22 Fibrinogen 792 mg/dL (169-393) H* 05/10/19 20:54 D-Dimer 5867 ng/mLFEU (0-500) H 05/10/19 20:54 ABG pH 7.13 pH Units (7.32-7.45) L* 05/11/19 07:55 ABG pCO2 49 mmHg (35-45) H 05/11/19 06:38 ABG pO2 74 mmHg (85-104) L D 05/11/19 07:55 ABG HCO3 13 mEq/L (21-27) L 05/11/19 07:55 ABG Total CO2 14 mEq/L (20-26) L 05/11/19 07:55 ABG O2 Saturation 89 % (95-98) L 05/11/19 07:55 ABG Base Excess -15 mEq/L (-2 to 3) L 05/11/19 07:55 VBG pH 6.84 pH Units (7.32-7.42) L* 05/11/19 04:54 VBG pCO2 82 mmHg (41-51) H* 05/11/19 04:54 VBG pO2 74 mmHg (25-50) H 05/11/19 04:54 VBG HCO3 14 mEq/L (21-27) L 05/11/19 04:54 Sodium 129 mEq/L (136-145) L D 05/11/19 04:28 Potassium 7.7 mEq/L (3.5-5.1) H* D 05/11/19 04:28 Carbon Dioxide 14 mEq/L (23-29) L 05/11/19 04:28 BUN 64 mg/dL (8-23) H 05/11/19 04:28 Creatinine 2.87 mg/dL (0.60-1.20) H 05/11/19 04:28 Est GFR ( Amer) 20 (> 60) L 05/11/19 04:28 Est GFR (Non-Af Amer) 17 (> 60) L 05/11/19 04:28 Glucose 447 mg/dL (70-105) H 05/11/19 04:28 POC Glucose 201 mg/dL (70-99) H 05/11/19 04:55 Calculated Osmolality 306 (280-300) H 05/11/19 04:28 Lactic Acid 3.1 mmol/L (0.5-2.2) H 05/11/19 04:28 Calcium 6.1 mg/dL (8.6-10.3) L 05/11/19 04:28 Phosphorus 10.1 mg/dL (2.7-4.5) H 05/11/19 04:28 Magnesium 2.8 mg/dL (1.6-2.6) H 05/11/19 04:28 AST 177 Units/L (13-39) H 05/11/19 04:28 Troponin I 0.16 ng/mL (< 0.04) H* 05/11/19 04:28 Serum Total Protein 4.1 g/dL (6.4-8.9) L 05/11/19 04:28 Albumin 2.1 g/dL (3.5-5.7) L 05/11/19 04:28 Globulin 2.0 g/dL (2.4-3.5) L 05/11/19 04:28 Procalcitonin > 100.00 ng/mL (0.00-0.15) H 05/10/19 16:22 Urine Clarity Turbid (Clear) A 05/10/19 20:38 Urine Protein 100 mg/dL (Neg-Trace) H 05/10/19 20:38 Urine Blood Large (Negative) H 05/10/19 20:38 Urine Bilirubin Small (Negative) H 05/10/19 20:38 Urine Microscopic RBC 3-5 per hpf (0-3) H 05/10/19 20:38 Urine Microscopic WBC 5-15 per hpf (0-3) H 05/10/19 20:38 Ur Squamous Epith Cells Many per lpf (None-Few) H 05/10/19 20:38 Amorphous Sediment Moderate (Few) H 05/10/19 20:38 Urine Bacteria Many per hpf (None-Few) H 05/10/19 20:38 Ur Culture Indicated? YES (NO) A 05/10/19 20:38 Entero/Rhino (PCR) DETECTED (Not Detect) A 05/10/19 17:00 - Microbiology Findings Microbiology Findings: Microbiology, Last 48 Hours 05/10/19 20:38 Urine Culture - Preliminary Urine,Catheterized (Straight) Culture is incubating. - Clinical Findings Intake & Output: Intake & Output 05/10/19 05/11/19 05/11/19 23:59 07:59 15:59 Intake Total 1036 / 1036 4354.05 / 4386.05 32 / 4386.05 Output Total 195 / 195 200 / 200 Balance 841 / 841 4154.05 / 4186.05 32 / 4186.05
[2019-05-11] MEDS: Aztreonam 2,000 MG in Water for inj. (sterile) 20 ML IVP SCH ×2 (09:35→20:33)
[2019-05-11] MEDS: MetroNIDAZOLE 500 MG/100 ML 500 MG/100 ML BAG IVPB SCH ×3 (09:35→23:36)
[2019-05-11 11:20] LABS: Chol/HDL Ratio 2.2 (0-4.9)
[2019-05-11] MEDS: *HR* Dextrose 50 % in Water (Syg) 50 ML SYRINGE IVP STA (11:20)
--- NOTE | 2019-05-11 11:48 | Nephrology Consult Note ---
Date of Encounter: 05/11/19 Time of Encounter: 12:00 Assessment and Plan (1) ARNOLDO (acute kidney injury) Current Visit: Yes Status: Acute Elevated SCr in the setting of shock, acute resp failure with PNA and rhabdo Continue aggressive volume repletion, will switch to D5 1/2NS with 75Meq bicarb No acute indication for [employer] at this time, will assess closely for need Avoid nephrotoxins if possible Urine studies noted Critical time spent approx. 40mins (2) Acute respiratory failure Current Visit: Yes Status: Acute Vent management per pulm/critical care Qualifiers: Respiratory failure complication: hypoxia and hypercapnia Qualified Code(s): J96.01 - Acute respiratory failure with hypoxia; J96.02 - Acute respiratory failure with hypercapnia (3) Bilateral pneumonia Current Visit: Yes Status: Acute Continue abx per primary team Qualifiers: Pneumonia type: due to unspecified organism Lung location: unspecified part of lung Qualified Code(s): J18.9 - Pneumonia, unspecified organism (4) Hyperkalemia Current Visit: Yes Status: Acute Potassium noted at 5.4 still mildly elevated but an improvement Agree with kayexalate Should continue to improve/stabilize with bicarb (5) Rhabdomyolysis Current Visit: Yes Status: Acute Elevated CPK noted at 12,000. Etiology unclear but abnormal CT abd/pelvis noted. Continue IVF Qualifiers: Rhabdomyolysis type: non-traumatic Qualified Code(s): M62.82 - Rhabdomyolysis (6) Septic shock Current Visit: Yes Status: Acute History of Present Illness - Reason for Consult Consult date: 05/11/19 Acute Kidney Injury, hyperkalemia Requesting physician: Michael Hahn - History of Present Illness 63 y o female with PMH of COPD, DVT, chronic leg pain with implanted neurostimulator admitted with SOB and noted with altered mental status diagnosed with PNA with resp failure with shock requiring intubated and transfer to the ICU. renal consulted early this am for hyperkalemia of 7.7 from initial 4.4 along with severe acidosis with PH at 6.95, pCO2 of 62. SCr noted at 2.37 on admission peaking at 2.87 with base of 0.71, GFR >60 as of 02/2018. nPt seen and examined with potassium donw to 5.4 and CPK noted at 12,206 Past Med Surg Social Fam HX - Past Medical History Medical history: COPD, DVT, other Additional medical history: chronic sciatica Psychiatric history: no psych history - Past Surgical History Surgical History: other Additional surgical history: neurostimulator to back-permanent. bowel resection - Social History Smoking Status: Former smoker Smokeless Tobacco Status: No Alcohol use: none Drug use: none Medications and Allergies Budesonide/Formoterol 160/4.5 [Symbicort 160/4.5] 2 puff IH BIDR 02/19/18 [History] Albuterol Neb [Proventil Neb] 2.5 mg IH Q4HR PRN 05/10/19 [History] Albuterol Sulfate [Ventolin Hfa] 2 puff IH Q4H PRN 05/10/19 [History] Tiotropium Shafer [Spiriva Respimat] 2 puff IH DAILY 05/11/19 [History] Allergy/AdvReac Type Severity Reaction Status Date / Time Cephalosporins Allergy Hives Verified 05/10/19 08:17 Penicillins Allergy Hives Verified 05/10/19 08:17 Sulfa (Sulfonamide Allergy Hives Verified 05/10/19 08:17 Antibiotics) Review of Systems ROS unobtainable: due to endotracheal tube Exam - Vital Signs Vital signs: Initial Vital Signs Pulse Ox 94 05/10/19 11:56 Vital Signs - Last 8 Hours Temp Pulse Resp BP Pulse Ox 05/11/19 10:07 20 99 05/11/19 08:55 24 89/51 94 05/11/19 08:00 99 24 121/66 96 05/11/19 07:38 97.6 F 05/11/19 06:00 102 16 127/46 96 05/11/19 05:00 120 16 120/36 99 05/11/19 04:02 15 96 05/11/19 04:00 103 15 76/50 96 05/11/19 03:58 103 Intake and Output 05/10/19 05/11/19 05/11/19 23:59 07:59 15:59 Intake Total 1036 / 1036 4354.05 / 4614.05 260 / 4614.05 Output Total 195 / 195 200 / 200 Balance 841 / 841 4154.05 / 4414.05 260 / 4414.05 Intake: IV Fluids 1036 / 1036 4354.05 / 4614.05 260 / 4614.05 0.9 % Sodium Chloride 500 ML @ 500 / 500 500 mls/hr IV ONCE ONE Rx#: [id number] 0.9 % Sodium Chloride 1,000 ML 1000 / 1000 2000 / 2000 @ 999 mls/hr IVC .Q1H1M ONE Rx# :[id number] D5% And 0.45% Nacl 1000 Ml Bag 500 / 500 1,000 ML @ 80 mls/hr IVC . [id number] [facility] Rx#:[id number] FentaNYL (PF) 1,000 MCG In 0.9 0 / 0 152 / 200 48 / 200 % Sodium Chloride 80 ML @ 50 MCG/HR 5 mls/hr IVC CONT [facility] Rx #:[id number] HumuLIN R 5 UNIT Sodium 550.05 / 550.05 Bicarbonate 50 MEQ In Dextrose 10% Water 500 Ml Ivbag 500 ML @ 800 mls/hr IVC ONCE ONE Rx#: [id number] Levophed 4 MG In 0.9 % Sodium 162 / 254 92 / 254 Chloride 250 ML @ 8 MCG/MIN 30. 48 mls/hr IVC CONT [facility] Rx#: [id number] Diprivan 1,000 mg In 100 ml @ 36 / 36 0 / 0 10 MCG/KG/MIN 2.31 mls/hr IVC . Q24H [facility] Rx#:[id number] Azactam 2,000 MG In Water for 20 / 20 inj. (sterile) 20 ML @ 300 mls/ hr IVP Q12H [facility] Rx#:[id number] Calcium Gluconate 2,000 MG In 0 240 / 240 .9 % Sodium Chloride 100 ML @ 220 mls/hr IVPB ONCE ONE Rx#: [id number] Flagyl Premix 500 MG/100 ML 500 100 / 100 mg In 100 ml @ 100 mls/hr IVPB Q8HR [facility] Rx#:[id number] Vancocin 750 MG In 0.9 % Sodium 250 / 250 Chloride 250 ML @ 250 mls/hr IVPB ONCE ONE Rx#:[id number] Output: Catheter 195 / 195 150 / 150 Gastric Drainage 50 / 50 Other: Blood Glucose* 190 153 - General Appearance General appearance: sedated on ventilator, intubated, frail EENT: ATNC, mucous membranes moist Neck: no JVD, supple Respiratory: course breath sounds Cardiology: no edema, normal S1, normal S2 Gastrointestinal: no tenderness, no guarding Integumentary: cool/clammy ( with mottling LE bilat) Additional Comments: sedated Musculoskeletal: no deformities Additional Comments: sedated Results - Lab Results 05/12/19 21:00 05/12/19 21:00 Most recent lab results 05/11/19 05/11/19 05/11/19 04:28 04:28 04:44 ABG pH 6.95 L* ABG pCO2 62 H ABG pO2 137 H ABG HCO3 14 L ABG O2 Saturation 97 Calcium 6.1 L Phosphorus 10.1 H Magnesium 2.8 H 05/11/19 05/11/19 05/11/19 06:38 07:55 08:22 ABG pH 7.10 L* D 7.13 L* ABG pCO2 49 H 40 ABG pO2 241 H D 74 L D ABG HCO3 15 L 13 L ABG O2 Saturation 100 H 89 L Calcium 6.5 L Phosphorus Magnesium Consult Discharge Plan - Plan Referrals: Donna Patterson MD [Primary Care Provider] -
[2019-05-11] MEDS: Calcium Gluconate 1gm/50mL 1 GM/50 ML BAG IVPB SCH ×2 (12:17→12:31)
[2019-05-11 12:31] LABS: ABG Base Excess -17 mEq/L (-2 to 3); ABG HCO3 12 mEq/L (21-27); ABG Oxygen Saturation 93 % (95-98); ABG PCO2 36 mmHg (35-45); ABG PH 7.11 pH Units (7.32-7.45); ABG PO2 86 mmHg (85-104); ABG TCO2 13 mEq/L (20-26); Blood Gas Modality VC; Blood Gas PEEP 8 cm H2O; Blood Gas VT 450 cc
--- NOTE | 2019-05-11 12:55 | AcuteCare Surgery Consult Note ---
Date of Encounter: 05/11/19 Time of Encounter: 12:54 Assessment and Plan (1) Abnormal CT of the abdomen Current Visit: Yes Status: Acute After evaluating the patient and reviewed the CT scan images I think that the findings might be more related to either edema due to third spacing versus infectious etiology and not due to ischemia. She has edema noted within the rectum and the rectum has a dual blood supply and it is extraordinarily rare that it would be involved any episodes of bowel ischemia. She is having evidence of renal failure and today so far is 4.4 L positive. I do agree with IV antibiotics including Flagyl to help cover some of the more concerning enteric organisms and toxins and will follow closely with you. Unfortunately, the patient is having signs of multiorgan failure including problems related to an elevated PT/INR. She currently on pressors and overall has a poor prognosis. History of Present Illness Consult date: 05/11/19 Reason for consult: other (Septic shock, abnormal CAT abdomen pelvis) Requesting physician: Delmar Gill History of present illness: That patient is a 63 year old female who has a past medical history significant for COPD, hypertension, and severe portein calorie malnutrition, and chronic left leg pains status post neurostimulator implantation who has been having s ymptoms of shortness of breath over the past her prior 2 days and presented herself to [facility] yesterday. She been having increased cough with subjective fevers and chills was admitted to the hospital. Later on yesterday evening she started to have change in mental status and respiratory status with marked tachypnea and a rapid response was called and the patient was subsequently intubated and transferred to ICU. She is had CT scan images of the chest abdomen and pelvis and she has evidence of a pneumonia and is exhibiting signs of sepsis. On examination today by the critical care team she was noted to have an abdomen that was felt to be tense and a CT scan of the abdomen that demonstrated edema throughout portions of the colon concerning for possible infectious colitis with ischemia unable to be discounted based upon the CT scan findings. I have been asked to evaluate the patient given these abnormal CT scan and her physical exam findings. Past Med Surg Social Fam HX - Past Medical History Medical history: COPD, DVT, other Additional medical history: chronic sciatica Psychiatric history: no psych history - Past Surgical History Surgical History: other Additional surgical history: neurostimulator to back-permanent. bowel resection - Social History Smoking Status: Former smoker Smokeless Tobacco Status: No Alcohol use: none Drug use: none Medications and Allergies Budesonide/Formoterol 160/4.5 [Symbicort 160/4.5] 2 puff IH BIDR 02/19/18 [History] Albuterol Neb [Proventil Neb] 2.5 mg IH Q4HR PRN 05/10/19 [History] Albuterol Sulfate [Ventolin Hfa] 2 puff IH Q4H PRN 05/10/19 [History] Tiotropium [place] [Spiriva Respimat] 2 puff IH DAILY 05/11/19 [History] Allergy/AdvReac Type Severity Reaction Status Date / Time Cephalosporins Allergy Hives Verified 05/10/19 08:17 Penicillins Allergy Hives Verified 05/10/19 08:17 Sulfa (Sulfonamide Allergy Hives Verified 05/10/19 08:17 Antibiotics) Review of Systems All systems PM: reviewed and no additional remarkable complaints except as stated All systems PM: The remainder of the systems were reviewed and are negative General Surgery Exam Initial Vital Signs Pulse Ox 94 05/10/19 11:56 - Respiratory other (intubated, decreased breath sounds noted with possible ronchi on the right ) - Cardiovascular Cardiovascular exam: Present: RRR, no murmurs/rubs/gallops - Abdomen Abdomen general surgery: Present: soft (Somewhat firm. No osseous. Unable to appreciate any evidence of abdominal pain to palpation due to patient's critical, intubated and sedated status.) - Musculoskeletal Present: other (no clubbing or cyanosis) Exam Initial Vital Signs Pulse Ox 94 05/10/19 11:56 Results - Labs 05/12/19 04:00 05/12/19 04:00 Abnormal lab results WBC 1.6 K/mcL (4.3-11.1) L 05/11/19 04:28 RBC 2.91 M/mcL (3.82-4.97) L 05/11/19 04:28 Hgb 8.3 g/dL (11.5-15.4) L D 05/11/19 04:28 Hct 30.5 % (35.3-44.9) L 05/11/19 04:28 MCV 104.8 fL (83.0-100.0) H 05/11/19 04:28 MCHC 27.2 g/dL (31.6-35.5) L 05/11/19 04:28 RDW 17.2 % (11.5-14.5) H 05/11/19 04:28 Band Neutrophils % 18.0 % (0-4) H 05/11/19 04:28 Metamyelocytes % 2.0 % (0) H 05/11/19 04:28 Neutrophils # 1.0 K/mcL (1.6-8.9) L 05/11/19 04:28 Lymphocytes # 0.5 K/mcL (0.6-4.6) L 05/11/19 04:28 Nucleated RBCs/100 WBC 4.5 /100 WBC (0) H 05/11/19 04:28 Anisocytosis 1+ (Not Present) A 05/11/19 04:28 Brenda Cells 1+ (Not Present) A 05/11/19 04:28 Acanthocytes (Spur) 1+ (Not Present) A 05/10/19 20:54 PT 31.5 Seconds (9.4-12.1) H 05/11/19 04:28 APTT 54.7 Seconds (26.0-36.0) H 05/10/19 22:22 Fibrinogen 792 mg/dL (169-393) H* 05/10/19 20:54 D-Dimer 5867 ng/mLFEU (0-500) H 05/10/19 20:54 ABG pH 7.11 pH Units (7.32-7.45) L* 05/11/19 12:24 ABG pCO2 49 mmHg (35-45) H 05/11/19 06:38 ABG pO2 74 mmHg (85-104) L D 05/11/19 07:55 ABG HCO3 12 mEq/L (21-27) L 05/11/19 12:24 ABG Total CO2 13 mEq/L (20-26) L 05/11/19 12:24 ABG O2 Saturation 93 % (95-98) L 05/11/19 12:24 ABG Base Excess -17 mEq/L (-2 to 3) L 05/11/19 12:24 VBG pH 6.84 pH Units (7.32-7.42) L* 05/11/19 04:54 VBG pCO2 82 mmHg (41-51) H* 05/11/19 04:54 VBG pO2 74 mmHg (25-50) H 05/11/19 04:54 VBG HCO3 14 mEq/L (21-27) L 05/11/19 04:54 Sodium 129 mEq/L (136-145) L D 05/11/19 04:28 Potassium 5.4 mEq/L (3.5-5.1) H D 05/11/19 08:22 Carbon Dioxide 14 mEq/L (23-29) L 05/11/19 08:22 BUN 58 mg/dL (8-23) H 05/11/19 08:22 Creatinine 2.56 mg/dL (0.60-1.20) H 05/11/19 08:22 Est GFR ( Amer) 23 (> 60) L 05/11/19 08:22 Est GFR (Non-Af Amer) 19 (> 60) L 05/11/19 08:22 Glucose 155 mg/dL (70-105) H 05/11/19 08:22 POC Glucose 201 mg/dL (70-99) H 05/11/19 04:55 Calculated Osmolality 301 (280-300) H 05/11/19 08:22 Lactic Acid 3.0 mmol/L (0.5-2.2) H 05/11/19 11:00 Calcium 6.5 mg/dL (8.6-10.3) L 05/11/19 08:22 Phosphorus 10.1 mg/dL (2.7-4.5) H 05/11/19 04:28 Magnesium 2.8 mg/dL (1.6-2.6) H 05/11/19 04:28 AST 177 Units/L (13-39) H 05/11/19 04:28 Creatine Kinase 43347 Units/L (30-223) H 05/11/19 04:28 Troponin I 0.18 ng/mL (< 0.04) H* 05/11/19 08:22 Serum Total Protein 4.1 g/dL (6.4-8.9) L 05/11/19 04:28 Albumin 2.1 g/dL (3.5-5.7) L 05/11/19 04:28 Globulin 2.0 g/dL (2.4-3.5) L 05/11/19 04:28 HDL Cholesterol 31 mg/dL (40-59) L 05/11/19 04:28 Procalcitonin > 100.00 ng/mL (0.00-0.15) H 05/10/19 16:22 Urine Clarity Turbid (Clear) A 05/10/19 20:38 Urine Protein 100 mg/dL (Neg-Trace) H 05/10/19 20:38 Urine Blood Large (Negative) H 05/10/19 20:38 Urine Bilirubin Small (Negative) H 05/10/19 20:38 Urine Microscopic RBC 3-5 per hpf (0-3) H 05/10/19 20:38 Urine Microscopic WBC 5-15 per hpf (0-3) H 05/10/19 20:38 Ur Squamous Epith Cells Many per lpf (None-Few) H 05/10/19 20:38 Amorphous Sediment Moderate (Few) H 05/10/19 20:38 Urine Bacteria Many per hpf (None-Few) H 05/10/19 20:38 Ur Culture Indicated? YES (NO) A 05/10/19 20:38 Entero/Rhino (PCR) DETECTED (Not Detect) A 05/10/19 17:00 Diabetes panel 05/10/19 05/10/19 05/11/19 Range/Units 13:05 20:54 04:28 Sodium 137 138 129 L D (136-145) mEq/L Potassium 4.4 5.7 H D 7.7 H* D (3.5-5.1) mEq/L Chloride 107 107 104 (98-107) mEq/L Carbon Dioxide 13 L 15 L 14 L (23-29) mEq/L BUN 50 H 57 H 64 H (8-23) mg/dL Creatinine 2.37 H 2.32 H 2.87 H (0.60-1.20) mg/dL Glucose 42 L 60 L 447 H (70-105) mg/dL Calcium 7.1 L 6.2 L 6.1 L (8.6-10.3) mg/dL AST (13-39) Units/L ALT (7-52) Units/L Alkaline Phosphatase (34-104) Units/L Albumin (3.5-5.7) g/dL Triglycerides (< 150) mg/dL HDL Cholesterol (40-59) mg/dL 05/11/19 05/11/19 Range/Units 04:28 08:22 Sodium 136 (136-145) mEq/L Potassium 5.4 H D (3.5-5.1) mEq/L Chloride 107 (98-107) mEq/L Carbon Dioxide 14 L (23-29) mEq/L BUN 58 H (8-23) mg/dL Creatinine 2.56 H (0.60-1.20) mg/dL Glucose 155 H (70-105) mg/dL Calcium 6.5 L (8.6-10.3) mg/dL AST 177 H (13-39) Units/L ALT 45 (7-52) Units/L Alkaline Phosphatase 41 (34-104) Units/L Albumin 2.1 L (3.5-5.7) g/dL Triglycerides 68 (< 150) mg/dL HDL Cholesterol 31 L (40-59) mg/dL Calcium panel 05/10/19 05/10/19 05/11/19 Range/Units 13:05 20:54 04:28 Calcium 7.1 L 6.2 L 6.1 L (8.6-10.3) mg/dL Phosphorus 6.2 H (2.7-4.5) mg/dL Albumin (3.5-5.7) g/dL 05/11/19 05/11/19 Range/Units 04:28 08:22 Calcium 6.5 L (8.6-10.3) mg/dL Phosphorus 10.1 H (2.7-4.5) mg/dL Albumin 2.1 L (3.5-5.7) g/dL Pituitary panel 05/10/19 05/10/19 05/11/19 Range/Units 13:05 20:54 04:28 Sodium 137 138 129 L D (136-145) mEq/L Potassium 4.4 5.7 H D 7.7 H* D (3.5-5.1) mEq/L Chloride 107 107 104 (98-107) mEq/L Carbon Dioxide 13 L 15 L 14 L (23-29) mEq/L BUN 50 H 57 H 64 H (8-23) mg/dL Creatinine 2.37 H 2.32 H 2.87 H (0.60-1.20) mg/dL Glucose 42 L 60 L 447 H (70-105) mg/dL Calcium 7.1 L 6.2 L 6.1 L (8.6-10.3) mg/dL 05/11/19 Range/Units 08:22 Sodium 136 (136-145) mEq/L Potassium 5.4 H D (3.5-5.1) mEq/L Chloride 107 (98-107) mEq/L Carbon Dioxide 14 L (23-29) mEq/L BUN 58 H (8-23) mg/dL Creatinine 2.56 H (0.60-1.20) mg/dL Glucose 155 H (70-105) mg/dL Calcium 6.5 L (8.6-10.3) mg/dL Adrenal panel 05/10/19 05/10/19 05/11/19 Range/Units 13:05 20:54 04:28 Sodium 137 138 129 L D (136-145) mEq/L Potassium 4.4 5.7 H D 7.7 H* D (3.5-5.1) mEq/L Chloride 107 107 104 (98-107) mEq/L Carbon Dioxide 13 L 15 L 14 L (23-29) mEq/L BUN 50 H 57 H 64 H (8-23) mg/dL Creatinine 2.37 H 2.32 H 2.87 H (0.60-1.20) mg/dL Glucose 42 L 60 L 447 H (70-105) mg/dL Calcium 7.1 L 6.2 L 6.1 L (8.6-10.3) mg/dL Total Bilirubin (0.3-1.0) mg/dL AST (13-39) Units/L ALT (7-52) Units/L Alkaline Phosphatase (34-104) Units/L Albumin (3.5-5.7) g/dL 05/11/19 05/11/19 Range/Units 04:28 08:22 Sodium 136 (136-145) mEq/L Potassium 5.4 H D (3.5-5.1) mEq/L Chloride 107 (98-107) mEq/L Carbon Dioxide 14 L (23-29) mEq/L BUN 58 H (8-23) mg/dL Creatinine 2.56 H (0.60-1.20) mg/dL Glucose 155 H (70-105) mg/dL Calcium 6.5 L (8.6-10.3) mg/dL Total Bilirubin 0.4 (0.3-1.0) mg/dL AST 177 H (13-39) Units/L ALT 45 (7-52) Units/L Alkaline Phosphatase 41 (34-104) Units/L Albumin 2.1 L (3.5-5.7) g/dL All other labs normal. - Imaging CT scan - abdomen: report reviewed, image reviewed (I personally reviewed the CT scan images and report which shows edema and portions of the colon including the rectum and what appears to be the descending colon. There also appears to be some edematous process thickening within segments of the small bowel. This is a noncontrast study. No free air) Consult Discharge Plan - Plan Referrals: Donna Patterson MD [Primary Care Provider] -
[2019-05-11] MEDS ORDERED: Sodium Bicarbonate 75 MEQ in D5% in 0.45% NACL 1,000 ML IVC SCH (14:45)
--- NOTE | 2019-05-11 14:49 | Neurology - Consult Note ---
Date of Encounter: 05/11/19 Time of Encounter: 10:00 Assessment and Plan (1) Acute metabolic encephalopathy Current Visit: Yes Status: Acute This patient who noted to have multiple medical issues and is been admitted with septic shock noted to have some seizure type of activity at the moment she has multiple exacerbating factor that potentially can cause seizure or seizure type of activity at the moment patient is sedated now and intubated CT of the head is negative for any acute bleed or infarct We will get an EEG to make sure she is not in nonconvulsive status Hold off on any antiepileptic medication at this time Continue to treat underlying medical condition as you already are. Discussed with the family in detail all question were answered History of Present Illness HPI: Ms. Garcia is a 63 year old female with multiple medical conditions admitted earlier with generalized malaise difficulty with breathing found to be in sepsis pneumonia and uterine infection as well as renal failure, while on the floor patient noted to have a seizure type of activity and was transferred to the ICU Intubated and sedated now . Patient is past medical history significant of COPD, diverticulitis s/p sigmoid resection, chronic L leg pain s/p implanted neurostimulator, Past Med Surg Social Fam HX - Past Medical History Medical history: COPD, DVT, other Additional medical history: chronic sciatica Psychiatric history: no psych history - Past Surgical History Surgical History: other Additional surgical history: neurostimulator to back-permanent. bowel resection - Social History Smoking Status: Former smoker Smokeless Tobacco Status: No Alcohol use: none Drug use: none Medications and Allergies Acetylcysteine [Nac] 600 mg PO DAILY 02/19/18 [History] Budesonide/Formoterol 160/4.5 [Symbicort 160/4.5] 2 puff IH BIDR 02/19/18 [History] Albuterol Neb [Proventil Neb] 2.5 mg IH Q4HR PRN 05/10/19 [History] Albuterol Sulfate [Ventolin Hfa] 2 puff IH Q4H PRN 05/10/19 [History] Tiotropium [Spiriva] 2 puff IH 0700 05/10/19 [History] Allergy/AdvReac Type Severity Reaction Status Date / Time Cephalosporins Allergy Hives Verified 05/10/19 08:17 Penicillins Allergy Hives Verified 05/10/19 08:17 Sulfa (Sulfonamide Allergy Hives Verified 05/10/19 08:17 Antibiotics) ROS unobtainable: due to endotracheal tube All Systems: The remainder of the systems were reviewed and are negative Physical Examination - Vital Signs Vital Signs: Initial Vital Signs Pulse Ox 94 05/10/19 11:56 - Exam Exam: Limited neurological examination as patient is intubated and sedated pupils are equal and sluggish reactive No withdrawal to the deep pain to flexes are symmetrical and downgoing toes bilaterally - Constitutional General appearance: comfortable Results - Laboratory Findings CBC and BMP: 05/11/19 04:28 05/11/19 08:22 Abnormal lab findings: Abnormal lab results WBC 1.6 K/mcL (4.3-11.1) L 05/11/19 04:28 RBC 2.91 M/mcL (3.82-4.97) L 05/11/19 04:28 Hgb 8.3 g/dL (11.5-15.4) L D 05/11/19 04:28 Hct 30.5 % (35.3-44.9) L 05/11/19 04:28 MCV 104.8 fL (83.0-100.0) H 05/11/19 04:28 MCHC 27.2 g/dL (31.6-35.5) L 05/11/19 04:28 RDW 17.2 % (11.5-14.5) H 05/11/19 04:28 Band Neutrophils % 18.0 % (0-4) H 05/11/19 04:28 Metamyelocytes % 2.0 % (0) H 05/11/19 04:28 Neutrophils # 1.0 K/mcL (1.6-8.9) L 05/11/19 04:28 Lymphocytes # 0.5 K/mcL (0.6-4.6) L 05/11/19 04:28 Nucleated RBCs/100 WBC 4.5 /100 WBC (0) H 05/11/19 04:28 Anisocytosis 1+ (Not Present) A 05/11/19 04:28 Brenda Cells 1+ (Not Present) A 05/11/19 04:28 Acanthocytes (Spur) 1+ (Not Present) A 05/10/19 20:54 PT 31.5 Seconds (9.4-12.1) H 05/11/19 04:28 APTT 54.7 Seconds (26.0-36.0) H 05/10/19 22:22 Fibrinogen 792 mg/dL (169-393) H* 05/10/19 20:54 D-Dimer 5867 ng/mLFEU (0-500) H 05/10/19 20:54 ABG pH 7.11 pH Units (7.32-7.45) L* 05/11/19 12:24 ABG pCO2 49 mmHg (35-45) H 05/11/19 06:38 ABG pO2 74 mmHg (85-104) L D 05/11/19 07:55 ABG HCO3 12 mEq/L (21-27) L 05/11/19 12:24 ABG Total CO2 13 mEq/L (20-26) L 05/11/19 12:24 ABG O2 Saturation 93 % (95-98) L 05/11/19 12:24 ABG Base Excess -17 mEq/L (-2 to 3) L 05/11/19 12:24 VBG pH 6.84 pH Units (7.32-7.42) L* 05/11/19 04:54 VBG pCO2 82 mmHg (41-51) H* 05/11/19 04:54 VBG pO2 74 mmHg (25-50) H 05/11/19 04:54 VBG HCO3 14 mEq/L (21-27) L 05/11/19 04:54 Sodium 129 mEq/L (136-145) L D 05/11/19 04:28 Potassium 5.4 mEq/L (3.5-5.1) H D 05/11/19 08:22 Carbon Dioxide 14 mEq/L (23-29) L 05/11/19 08:22 BUN 58 mg/dL (8-23) H 05/11/19 08:22 Creatinine 2.56 mg/dL (0.60-1.20) H 05/11/19 08:22 Est GFR ( Amer) 23 (> 60) L 05/11/19 08:22 Est GFR (Non-Af Amer) 19 (> 60) L 05/11/19 08:22 Glucose 155 mg/dL (70-105) H 05/11/19 08:22 POC Glucose 201 mg/dL (70-99) H 05/11/19 04:55 Calculated Osmolality 301 (280-300) H 05/11/19 08:22 Lactic Acid 3.0 mmol/L (0.5-2.2) H 05/11/19 11:00 Calcium 6.5 mg/dL (8.6-10.3) L 05/11/19 08:22 Phosphorus 10.1 mg/dL (2.7-4.5) H 05/11/19 04:28 Magnesium 2.8 mg/dL (1.6-2.6) H 05/11/19 04:28 AST 177 Units/L (13-39) H 05/11/19 04:28 Creatine Kinase 40898 Units/L (30-223) H 05/11/19 04:28 Troponin I 0.18 ng/mL (< 0.04) H* 05/11/19 08:22 Serum Total Protein 4.1 g/dL (6.4-8.9) L 05/11/19 04:28 Albumin 2.1 g/dL (3.5-5.7) L 05/11/19 04:28 Globulin 2.0 g/dL (2.4-3.5) L 05/11/19 04:28 HDL Cholesterol 31 mg/dL (40-59) L 05/11/19 04:28 Procalcitonin > 100.00 ng/mL (0.00-0.15) H 05/10/19 16:22 Urine Clarity Turbid (Clear) A 05/10/19 20:38 Urine Protein 100 mg/dL (Neg-Trace) H 05/10/19 20:38 Urine Blood Large (Negative) H 05/10/19 20:38 Urine Bilirubin Small (Negative) H 05/10/19 20:38 Urine Microscopic RBC 3-5 per hpf (0-3) H 05/10/19 20:38 Urine Microscopic WBC 5-15 per hpf (0-3) H 05/10/19 20:38 Ur Squamous Epith Cells Many per lpf (None-Few) H 05/10/19 20:38 Amorphous Sediment Moderate (Few) H 05/10/19 20:38 Urine Bacteria Many per hpf (None-Few) H 05/10/19 20:38 Ur Culture Indicated? YES (NO) A 05/10/19 20:38 Entero/Rhino (PCR) DETECTED (Not Detect) A 05/10/19 17:00 - Diagnostic Findings Additional findings: CT scan of the head is negative Consult Discharge Plan - Plan Referrals: Donna Patterson MD [Primary Care Provider] -
--- NOTE | 2019-05-11 15:08 | Electrocardiograph Report ---
[address] [address] Test Date: 2019-05-10 Pat Name: Zenaida Garcia Department: 110 Room: [facility] Gender: F Respiratory Therapist: Lauro : 1955 Requested By: Rivera Cornejo Order Number: [id number] Reading MD: Maggie Nunez Measurements Intervals [place] Rate: 121 P: 84 TN: 146 QRS: 90 QRSD: 94 T: 51 QT: 301 QTc: 373 Interpretive Statements SINUS TACHYCARDIA ABNORMAL RHYTHM ECG Electronically Signed On 05-11-2019 15:07:10 EDT by Maggie Nunez
[2019-05-11] MEDS: Sodium Bicarbonate 75 MEQ in D5% in 0.45% NACL 1,000 ML IVC SCH ×2 (16:05→23:33)
[2019-05-11 16:56] LABS: Albumin 2.5 g/dL (3.5-5.7); Bilirubin,Total 0.5 mg/dL (0.3-1.0); Calcium 6.8 mg/dL (8.6-10.3); Globulin 2.5 g/dL (2.4-3.5); Potassium 5.8 mEq/L (3.5-5.1)
[2019-05-11 17:29] LABS: Hematocrit 34.8 % (35.3-44.9); Hemoglobin 10.2 g/dL (11.5-15.4); Immature Granulocytes % 1.5 % (0-4); Lymphocytes # 0.1 K/mcL (0.6-4.6); Lymphocytes % 2.4 %; Mean Corpuscular HGB Conc 29.3 g/dL (31.6-35.5); Mean Corpuscular Hemoglobin 28.7 pg (28.0-33.3); Mean Platelet Volume 9.8 fL (9.4-12.4); Monocytes # 0.1 K/mcL (0.0-1.3); Monocytes % 2.4 %; Neutrophils # 3.8 K/mcL (1.6-8.9); Nucleated Red Blood Cells 0.7 /100 WBC (0); Platelet Count 192 K/mcL (140-400); Red Blood Count 3.55 M/mcL (3.82-4.97); Red Cell Distribution Width 17.4 % (11.5-14.5); Segmented Neutrophils % 92.7 %; White Blood Count 4.1 K/mcL (4.3-11.1)
[2019-05-11] MEDS ORDERED: Calcium Gluconate 1gm/50mL 1 GM/50 ML BAG IVPB ONE (17:55)
[2019-05-11 18:01] LABS: Platelet Estimate Slight Decrease (Normal); Toxic Granulation Present (Not Present)
[2019-05-11 18:45] LABS: ABG Base Excess -17 mEq/L (-2 to 3); ABG HCO3 12 mEq/L (21-27); ABG Oxygen Saturation 91 % (95-98); ABG PCO2 36 mmHg (35-45); ABG PH 7.12 pH Units (7.32-7.45); ABG PO2 81 mmHg (85-104); ABG TCO2 13 mEq/L (20-26); Blood Gas Modality ASSIST CONTROL; Blood Gas PEEP 8 cm H2O; Blood Gas VT 450 cc
[2019-05-11] MEDS ORDERED: *HR* Dextrose 50 % in Water (Syg) 50 ML SYRINGE IVP PRN (23:00)
[2019-05-12 02:16] LABS: Basophils # 0.1 K/mcL (0.0-0.2); Hematocrit 32.7 % (35.3-44.9); Hemoglobin 9.7 g/dL (11.5-15.4); Immature Granulocytes % 2.4 % (0-4); Lymphocytes # 0.1 K/mcL (0.6-4.6); Lymphocytes % 1.5 %; Mean Corpuscular HGB Conc 29.7 g/dL (31.6-35.5); Mean Corpuscular Hemoglobin 28.7 pg (28.0-33.3); Mean Corpuscular Volume 96.7 fL (83.0-100.0); Mean Platelet Volume 9.6 fL (9.4-12.4); Monocytes # 0.2 K/mcL (0.0-1.3); Monocytes % 2.5 %; Neutrophils # 5.5 K/mcL (1.6-8.9); Nucleated Red Blood Cells 0.7 /100 WBC (0); Platelet Count 158 K/mcL (140-400); Red Blood Count 3.38 M/mcL (3.82-4.97); Red Cell Distribution Width 17.7 % (11.5-14.5); Segmented Neutrophils % 92.6 %; White Blood Count 5.9 K/mcL (4.3-11.1)
[2019-05-12 02:17] LABS: VBG Ionized Calcium 0.89 mmol/L (1.15-1.35)
[2019-05-12 02:27] LABS: Albumin 2.3 g/dL (3.5-5.7); Bilirubin,Total 0.4 mg/dL (0.3-1.0); Calcium 6.5 mg/dL (8.6-10.3); Globulin 2.4 g/dL (2.4-3.5); Potassium 5.5 mEq/L (3.5-5.1); Total Protein 4.7 g/dL (6.4-8.9)
[2019-05-12 02:40] LABS: Anisocytosis 1+ (Not Present); Platelet Estimate Normal (Normal)
[2019-05-12] MEDS: Ipratropium/Albuterol Neb 3 ML IH SCH ×5 (04:19→20:10)
[2019-05-12] MEDS: Artificial Tears SOLN 15 ML BOTTLE BOTH EYES SCH ×6 (04:35→23:43)
[2019-05-12 04:46] LABS: ABG Base Excess -14 mEq/L (-2 to 3); ABG HCO3 14 mEq/L (21-27); ABG Oxygen Saturation 96 % (95-98); ABG PCO2 37 mmHg (35-45); ABG PH 7.18 pH Units (7.32-7.45); ABG PO2 99 mmHg (85-104); ABG TCO2 15 mEq/L (20-26); Blood Gas Modality ASSIST CONTROL; Blood Gas PEEP 8 cm H2O; Blood Gas VT 450 cc
[2019-05-12 05:06] LABS: Basophils % 0.7 %; Hematocrit 32.3 % (35.3-44.9); Hemoglobin 9.4 g/dL (11.5-15.4); Immature Granulocytes % 1.5 % (0-4); Lymphocytes # 0.1 K/mcL (0.6-4.6); Lymphocytes % 1.6 %; Mean Corpuscular HGB Conc 29.1 g/dL (31.6-35.5); Mean Corpuscular Hemoglobin 28.1 pg (28.0-33.3); Mean Corpuscular Volume 96.4 fL (83.0-100.0); Mean Platelet Volume 8.9 fL (9.4-12.4); Monocytes # 0.2 K/mcL (0.0-1.3); Monocytes % 2.5 %; Neutrophils # 5.7 K/mcL (1.6-8.9); Nucleated Red Blood Cells 0.8 /100 WBC (0); Platelet Count 142 K/mcL (140-400); Red Blood Count 3.35 M/mcL (3.82-4.97); Red Cell Distribution Width 17.9 % (11.5-14.5); Segmented Neutrophils % 93.7 %; White Blood Count 6.1 K/mcL (4.3-11.1)
[2019-05-12 05:08] LABS: VBG Ionized Calcium 0.87 mmol/L (1.15-1.35)
[2019-05-12 05:13] LABS: Prothrombin Time 11.2 Seconds (9.4-12.1)
[2019-05-12 05:24] LABS: Anisocytosis 1+ (Not Present); Platelet Estimate Normal (Normal)
[2019-05-12 05:26] LABS: Alanine Aminotransferase 84 Units/L (7-52); Albumin 2.3 g/dL (3.5-5.7); Alkaline Phosphatase 49 Units/L (34-104); Aspartate Amino Transferase 333 Units/L (13-39); BUN/Creatinine Ratio 20 (6-26); Bilirubin,Total 0.4 mg/dL (0.3-1.0); Blood Urea Nitrogen 66 mg/dL (8-23); Calcium 6.3 mg/dL (8.6-10.3); Carbon Dioxide 14 mEq/L (23-29); Chloride 106 mEq/L (98-107); Globulin 2.3 g/dL (2.4-3.5); Glucose 122 mg/dL (70-105); Osmolality,Calculated 306 (280-300); Potassium 5.4 mEq/L (3.5-5.1); Sodium 138 mEq/L (136-145); Total Protein 4.6 g/dL (6.4-8.9); eGFR For African Americans 17 (> 60); eGFR For Non-African Americans 14 (> 60)
[2019-05-12] MEDS: FentaNYL (PF) 1,000 MCG in 0.9 % Sodium Chloride 80 ML IVC SCH ×3 (06:08→23:42)
[2019-05-12] MEDS: Tiotropium 18 MCG inhalation IH SCH (07:32)
[2019-05-12] MEDS: Budesonide/Formoterol 160/4.5 1 PUFF INH IH SCH ×2 (07:32→20:10)
[2019-05-12] MEDS ORDERED: Calcium Gluconate 2,000 MG in 0.9 % Sodium Chloride 100 ML IVPB ONE (08:08)
--- NOTE | 2019-05-12 08:26 | Pulmonology Progress Note ---
<Rey Romero - Last Filed: 05/12/19 11:28> Date of Encounter: 05/12/19 Time of Encounter: 08:26 Assessment and Plan (1) Acute respiratory failure Current Visit: Yes Status: Acute Presented to ICU from floor with acute respiratory failure. Likely 2/2 to pneumonia and septic shock. Also likely COPD exacerbation. CXR showed diffuse airspace opacities, worst in L lung base. Noted to have WBC of 1.2, lactate 2.4, PCT >100. Plan: - Intubated and sedated on fentanyl/propofol, vent bundle ordered - Started vanc/levaquin on 05/10; added flagyl 05/11 - Stopped aztreonam - Scheduled bronchodilators and steroids - Daily ABGs, cont to monitor vitals and respiratory status Qualifiers: Respiratory failure complication: hypoxia and hypercapnia Qualified Code(s): J96.01 - Acute respiratory failure with hypoxia; J96.02 - Acute respiratory failure with hypercapnia (2) Acute metabolic encephalopathy Current Visit: Yes Status: Acute Worsening mental status associated with worsening respiratory status and septic shock. Likely due to acute resp failure, hyperkalemia, lactic acidosis, ARNOLDO with increased Cr, hypoglycemia Intubated/sedated for resp failure. Plan: - On fentanyl/propofol - Cont to treat infection and electrolyte abnormalities - Cont monitoring glucose, hypoglycemia protocol - Cont to monitor mental status (3) Septic shock Current Visit: Yes Status: Acute Septic shock 2/2 to PNA, acute resp failure. Hypotensive. Received 4 L NS bolus for blood pressure support. Started on levophed for hypotension. R IJ CVC placed. Elevated Cr, LFTs, troponins indicated shock with multiple organ dysfunction. Bedside US showed greater than 50% collapsibility, fluid responsive. Noted to have WBC of 1.2, lactate 2.4, PCT >100. Plan: - On vanc, levaquin, flagyl for abx coverage - Possible abdominal process, colitis on CT scan - Surgery consulted for evaluation, will monitor for abdominal compartment syndrome - Not a candidate for surgical intervention given poor prognosis and unstable hemodynamic status - Blood and urine cultures pending, showing gram positive cocci - Cont to monitor trops, BMP, and LFTs (4) Bilateral pneumonia Current Visit: Yes Status: Acute PNA noted on CXR. Presented with resp distress. Resp panel positive for enter/rhinovirus. Likely bacterial superinfection. Plan: - See plan above for resp failure and septic shock Qualifiers: Pneumonia type: due to unspecified organism Lung location: unspecified part of lung Qualified Code(s): J18.9 - Pneumonia, unspecified organism (5) ARNOLDO (acute kidney injury) Current Visit: Yes Status: Acute ARNOLDO with Cr of 2.37, now 2.56. Likely d/t hypoperfusion from septic shock. Patient was also hyperkalemic to 7.7 at admission to ICU. Plan: - Nephrology consulted, will consider dialysis for hyperk - Will start 0.45% NaCl with 75 meQ bicarb with D5 - Gave another 2 amps of bicarbonate for acidosis - Will cont to monitor BMP - Avoid nephrotoxins, use renal dosing for meds (6) Hyperkalemia Current Visit: Yes Status: Acute Potassium 7.7 this morning with peaked T waves on EKG. Stabilized with Ca, albuterol, insulin/glucose. Plan: - Nephrology consulted, will consider dialysis - Gave 2g Ca gluconate - Gave 30 mg kayexalate - Trend BMP q6H, monitor K (7) COPD exacerbation Current Visit: Yes Status: Acute Exacerbation of chronic airway disease. Plan: - Currently intubated/sedated - On inhalers/steroids (8) Leukopenia Current Visit: Yes Status: Acute Noted to have initial WBC of 1.6. Concerning for possible malignancy, immunocompromise. Plan: - Cont to trend CBC - Peripheral smear Qualifiers: Leukopenia type: unspecified Qualified Code(s): D72.819 - Decreased white blood cell count, unspecified (9) Coagulopathy Current Visit: Yes Status: Acute Elevated INR of 2.8. Likely related to septic shock. Fibrinogen 792, dimer 5867. Plan: - Will give 3 doses of 5mg Vit K over next 3 days - Monitor coags (10) Elevated troponin Current Visit: Yes Status: Acute Elevated troponins likely d/t shock and hypoperfusion. Possible demand ischemia. Echo showed LVEF 60-65%, no pHTN. Plan: - Trend troponins (11) Rhabdomyolysis Current Visit: Yes Status: Acute Elevated CPK of 12,206. Plan: - Nephro consulted - Trend CPK - Cont MIVFs as above Qualifiers: Rhabdomyolysis type: non-traumatic Qualified Code(s): M62.82 - Rhabdomyolysis (12) DVT prophylaxis Current Visit: Yes Status: Acute DVT PPX: EPCDs Analgesia: fentanyl Sedation: propofol SBT: none Glycemic control: SSI Bowl regimen: none Activity: intubated/sedated Fluids: none Electrolytes: replete as necessary Nutrition: NPO GI ppx: PPI Lines: 2x PIVs, R IJ CVC, ET, OG, duffy Consults: nephro, neuro, pulm, vascular Code: FULL Dispo: ICU Subjective Principal diagnosis: septic shock Interval history: Patient was seen and examined at bedside. No acute events overnight. Remains intubated and sedated. Not responsive to stimuli this morning. Replaced electrolytes. Restarted bicarbonate drip. This morning consulted with aids social worker regarding POA. They recommended we speak with legal to discuss involvement of son who is incarcerated. In addition, also spoke with a nephew who is an ICU nurse. Discussed with her over the phone that the other nephew Juvencio Parker, be the contact for health care decision making. The patient had previously made him her emergency contact on previous admissions and based on a medical information card he is the patient's current emergency contact. We will have a family meeting later in the afternoon to discuss POA and further goals of care for this patient. Patient's prognosis is poor and may be unlikely to benefit from further aggressive measures. Objective PUL Vital signs: Last Vital Signs Temp 97.6 F 05/12/19 03:47 Pulse 107 05/12/19 07:00 Resp 24 05/12/19 07:00 BP 140/61 05/12/19 07:00 Pulse Ox 98 05/12/19 07:00 General appearance: no acute distress Eyes: nonicteric ENT: oropharynx moist Neck: supple Effort: normal Auscultation: bilateral: clear Cardiovascular: regular rate and rhythm Gastrointestinal: normoactive bowel sounds, non-tender (firm, but non- peritonitic), non-distended Integumentary: normal Extremities: no cyanosis, no edema, no clubbing Musculoskeletal: no deformities, ROM normal unable to assess due to mental status Ventilator Settings Ventilator Settings: Ventilator Settings, Last 8 Hours Ventilator Tidal Volume 450 Setting Ventilator Tidal Volume 450 Setting Ventilator Tidal Volume 450 Setting Ventilator Tidal Volume 450 Setting Ventilator Tidal Volume 450 Setting Ventilator Tidal Volume 450 Setting Ventilator Tidal Volume 450 Setting Ventilator Tidal Volume 450 Setting Ventilator Tidal Volume 450 Setting Ventilator Tidal Volume 450 Setting Ventilator Tidal Volume 450 Setting Ventilator Respiratory Rate 24 Setting Ventilator Respiratory Rate 24 Setting Ventilator Respiratory Rate 24 Setting Ventilator Respiratory Rate 24 Setting Ventilator Respiratory Rate 24 Setting Ventilator Respiratory Rate 24 Setting Ventilator Respiratory Rate 24 Setting Ventilator Respiratory Rate 24 Setting Ventilator Respiratory Rate 24 Setting Ventilator Respiratory Rate 24 Setting Ventilator Respiratory Rate 24 Setting Actual Respiratory Rate 24 Actual Respiratory Rate 24 Actual Respiratory Rate 24 Actual Respiratory Rate 24 Actual Respiratory Rate 24 Actual Respiratory Rate 24 Actual Respiratory Rate 24 Actual Respiratory Rate 24 Actual Respiratory Rate 24 Actual Respiratory Rate 24 Positive End Expiratory 8 Pressure Positive End Expiratory 8 Pressure Positive End Expiratory 8 Pressure Positive End Expiratory 8 Pressure Positive End Expiratory 8 Pressure Positive End Expiratory 8 Pressure Positive End Expiratory 8 Pressure Positive End Expiratory 8 Pressure Positive End Expiratory 8 Pressure Positive End Expiratory 8 Pressure Positive End Expiratory 8 Pressure Peak Inspiratory Airway 28 Pressure Peak Inspiratory Airway 28 Pressure Peak Inspiratory Airway 32 Pressure Peak Inspiratory Airway 30 Pressure Peak Inspiratory Airway 30 Pressure Peak Inspiratory Airway 28 Pressure Peak Inspiratory Airway 28 Pressure Peak Inspiratory Airway 29 Pressure Peak Inspiratory Airway 28 Pressure Peak Inspiratory Airway 28 Pressure Results - Laboratory Findings CBC and BMP: 05/12/19 04:00 05/12/19 04:00 ABG ABG pH 7.18 pH Units (7.32-7.45) L* 05/12/19 04:39 ABG pCO2 37 mmHg (35-45) 05/12/19 04:39 ABG pO2 99 mmHg (85-104) 05/12/19 04:39 ABG O2 Saturation 96 % (95-98) 05/12/19 04:39 PT/INR, D-dimer PT 11.2 Seconds (9.4-12.1) D 05/12/19 04:00 D-Dimer 5867 ng/mLFEU (0-500) H 05/10/19 20:54 Abnormal lab findings: Abnormal lab results WBC 4.1 K/mcL (4.3-11.1) L D 05/11/19 16:51 RBC 3.35 M/mcL (3.82-4.97) L 05/12/19 04:00 Hgb 9.4 g/dL (11.5-15.4) L 05/12/19 04:00 Hct 32.3 % (35.3-44.9) L 05/12/19 04:00 MCV 104.8 fL (83.0-100.0) H 05/11/19 04:28 MCHC 29.1 g/dL (31.6-35.5) L 05/12/19 04:00 RDW 17.9 % (11.5-14.5) H 05/12/19 04:00 MPV 8.9 fL (9.4-12.4) L 05/12/19 04:00 Band Neutrophils % 18.0 % (0-4) H 05/11/19 04:28 Metamyelocytes % 2.0 % (0) H 05/11/19 04:28 Neutrophils # 1.0 K/mcL (1.6-8.9) L 05/11/19 04:28 Lymphocytes # 0.1 K/mcL (0.6-4.6) L 05/12/19 04:00 Nucleated RBCs/100 WBC 0.8 /100 WBC (0) H 05/12/19 04:00 Toxic Granulation Present (Not Present) A 05/11/19 16:51 Platelet Estimate Slight Decrease (Normal) L 05/11/19 16:51 Anisocytosis 1+ (Not Present) A 05/12/19 04:00 [place] Cells 1+ (Not Present) A 05/11/19 04:28 Acanthocytes (Spur) 1+ (Not Present) A 05/10/19 20:54 PT 31.5 Seconds (9.4-12.1) H 05/11/19 04:28 APTT 54.7 Seconds (26.0-36.0) H 05/10/19 22:22 Fibrinogen 690 mg/dL (169-393) H 05/12/19 04:00 D-Dimer 5867 ng/mLFEU (0-500) H 05/10/19 20:54 ABG pH 7.18 pH Units (7.32-7.45) L* 05/12/19 04:39 ABG pCO2 49 mmHg (35-45) H 05/11/19 06:38 ABG pO2 81 mmHg (85-104) L 05/11/19 18:39 ABG HCO3 14 mEq/L (21-27) L 05/12/19 04:39 ABG Total CO2 15 mEq/L (20-26) L 05/12/19 04:39 ABG O2 Saturation 91 % (95-98) L 05/11/19 18:39 ABG Base Excess -14 mEq/L (-2 to 3) L 05/12/19 04:39 VBG pH 6.84 pH Units (7.32-7.42) L* 05/11/19 04:54 VBG pCO2 82 mmHg (41-51) H* 05/11/19 04:54 VBG pO2 74 mmHg (25-50) H 05/11/19 04:54 VBG HCO3 14 mEq/L (21-27) L 05/11/19 04:54 Sodium 129 mEq/L (136-145) L D 05/11/19 04:28 Potassium 5.4 mEq/L (3.5-5.1) H 05/12/19 04:00 Carbon Dioxide 14 mEq/L (23-29) L 05/12/19 04:00 BUN 66 mg/dL (8-23) H 05/12/19 04:00 Creatinine 3.24 mg/dL (0.60-1.20) H 05/12/19 04:00 Est GFR ( Amer) 17 (> 60) L 05/12/19 04:00 Est GFR (Non-Af Amer) 14 (> 60) L 05/12/19 04:00 Glucose 122 mg/dL (70-105) H 05/12/19 04:00 POC Glucose 108 mg/dL (70-99) H 05/12/19 00:06 Calculated Osmolality 306 (280-300) H 05/12/19 04:00 Lactic Acid 4.2 mmol/L (0.5-2.2) H* 05/12/19 01:54 Calcium 6.3 mg/dL (8.6-10.3) L 05/12/19 04:00 Venous Ioniz Calcium 0.87 mmol/L (1.15-1.35) L 05/12/19 05:05 Phosphorus 10.1 mg/dL (2.7-4.5) H 05/11/19 04:28 Magnesium 2.8 mg/dL (1.6-2.6) H 05/11/19 04:28 AST 333 Units/L (13-39) H 05/12/19 04:00 ALT 84 Units/L (7-52) H 05/12/19 04:00 Creatine Kinase 44608 Units/L (30-223) H 05/11/19 04:28 Troponin I 0.15 ng/mL (< 0.04) H* 05/12/19 04:00 Serum Total Protein 4.6 g/dL (6.4-8.9) L 05/12/19 04:00 Albumin 2.3 g/dL (3.5-5.7) L 05/12/19 04:00 Globulin 2.3 g/dL (2.4-3.5) L 05/12/19 04:00 Albumin/Globulin Ratio 1.0 (1.1-2.2) L 05/12/19 04:00 HDL Cholesterol 31 mg/dL (40-59) L 05/11/19 04:28 Procalcitonin > 100.00 ng/mL (0.00-0.15) H 05/10/19 16:22 Urine Clarity Turbid (Clear) A 05/10/19 20:38 Urine Protein 100 mg/dL (Neg-Trace) H 05/10/19 20:38 Urine Blood Large (Negative) H 05/10/19 20:38 Urine Bilirubin Small (Negative) H 05/10/19 20:38 Urine Microscopic RBC 3-5 per hpf (0-3) H 05/10/19 20:38 Urine Microscopic WBC 5-15 per hpf (0-3) H 05/10/19 20:38 Ur Squamous Epith Cells Many per lpf (None-Few) H 05/10/19 20:38 Amorphous Sediment Moderate (Few) H 05/10/19 20:38 Urine Bacteria Many per hpf (None-Few) H 05/10/19 20:38 Ur Culture Indicated? YES (NO) A 05/10/19 20:38 Entero/Rhino (PCR) DETECTED (Not Detect) A 05/10/19 17:00 - Microbiology Findings Microbiology Findings: Microbiology, Last 48 Hours 05/10/19 20:38 Urine Culture - Final Urine,Catheterized (Straight) No growth. 05/10/19 15:12 Legionella Antigen - Final Urine,Clean Catch Streptococcus pneumoniae Antigen (M - Final - Clinical Findings Intake & Output: Intake & Output 05/11/19 05/12/19 05/12/19 23:59 07:59 15:59 Intake Total 1599 / 6927.55 200 / 200 Output Total 0 / 0 Balance 1589 / 0352.55 200 / 200 Consult Discharge Plan - Plan Referrals: Donna Patterson MD [Primary Care Provider] - <DaydayverenaNabil cartagenas W - Last Filed: 05/12/19 11:39> Date of Encounter: 05/12/19 Objective PUL Vital signs: Last Vital Signs Temp 96.8 F L 05/12/19 08:32 Pulse 111 05/12/19 10:00 Resp 24 05/12/19 10:00 BP 106/72 05/12/19 10:00 Pulse Ox 99 05/12/19 10:00 Ventilator Settings Ventilator Settings: Ventilator Settings, Last 8 Hours Ventilator Tidal Volume 450 Setting Ventilator Tidal Volume 450 Setting Ventilator Tidal Volume 450 Setting Ventilator Tidal Volume 450 Setting Ventilator Tidal Volume 450 Setting Ventilator Tidal Volume 450 Setting Ventilator Tidal Volume 450 Setting Ventilator Tidal Volume 450 Setting Ventilator Tidal Volume 450 Setting Ventilator Tidal Volume 450 Setting Ventilator Respiratory Rate 24 Setting Ventilator Respiratory Rate 24 Setting Ventilator Respiratory Rate 24 Setting Ventilator Respiratory Rate 24 Setting Ventilator Respiratory Rate 24 Setting Ventilator Respiratory Rate 24 Setting Ventilator Respiratory Rate 24 Setting Ventilator Respiratory Rate 24 Setting Ventilator Respiratory Rate 24 Setting Ventilator Respiratory Rate 24 Setting Actual Respiratory Rate 24 Actual Respiratory Rate 24 Actual Respiratory Rate 24 Actual Respiratory Rate 24 Actual Respiratory Rate 24 Actual Respiratory Rate 24 Actual Respiratory Rate 24 Actual Respiratory Rate 24 Actual Respiratory Rate 24 Positive End Expiratory 8 Pressure Positive End Expiratory 8 Pressure Positive End Expiratory 8 Pressure Positive End Expiratory 8 Pressure Positive End Expiratory 8 Pressure Positive End Expiratory 8 Pressure Positive End Expiratory 8 Pressure Positive End Expiratory 8 Pressure Positive End Expiratory 8 Pressure Positive End Expiratory 8 Pressure Peak Inspiratory Airway 30 Pressure Peak Inspiratory Airway 26 Pressure Peak Inspiratory Airway 28 Pressure Peak Inspiratory Airway 28 Pressure Peak Inspiratory Airway 28 Pressure Peak Inspiratory Airway 32 Pressure Peak Inspiratory Airway 30 Pressure Peak Inspiratory Airway 30 Pressure Peak Inspiratory Airway 28 Pressure Results - Laboratory Findings CBC and BMP: 05/12/19 04:00 05/12/19 04:00 ABG ABG pH 7.18 pH Units (7.32-7.45) L* 05/12/19 04:39 ABG pCO2 37 mmHg (35-45) 05/12/19 04:39 ABG pO2 99 mmHg (85-104) 05/12/19 04:39 ABG O2 Saturation 96 % (95-98) 05/12/19 04:39 PT/INR, D-dimer PT 11.2 Seconds (9.4-12.1) D 05/12/19 04:00 D-Dimer 5867 ng/mLFEU (0-500) H 05/10/19 20:54 Abnormal lab findings: Abnormal lab results WBC 4.1 K/mcL (4.3-11.1) L D 05/11/19 16:51 RBC 3.35 M/mcL (3.82-4.97) L 05/12/19 04:00 Hgb 9.4 g/dL (11.5-15.4) L 05/12/19 04:00 Hct 32.3 % (35.3-44.9) L 05/12/19 04:00 MCV 104.8 fL (83.0-100.0) H 05/11/19 04:28 MCHC 29.1 g/dL (31.6-35.5) L 05/12/19 04:00 RDW 17.9 % (11.5-14.5) H 05/12/19 04:00 MPV 8.9 fL (9.4-12.4) L 05/12/19 04:00 Band Neutrophils % 18.0 % (0-4) H 05/11/19 04:28 Metamyelocytes % 2.0 % (0) H 05/11/19 04:28 Neutrophils # 1.0 K/mcL (1.6-8.9) L 05/11/19 04:28 Lymphocytes # 0.1 K/mcL (0.6-4.6) L 05/12/19 04:00 Nucleated RBCs/100 WBC 0.8 /100 WBC (0) H 05/12/19 04:00 Toxic Granulation Present (Not Present) A 05/11/19 16:51 Platelet Estimate Slight Decrease (Normal) L 05/11/19 16:51 Anisocytosis 1+ (Not Present) A 05/12/19 04:00 [place] Cells 1+ (Not Present) A 05/11/19 04:28 Acanthocytes (Spur) 1+ (Not Present) A 05/10/19 20:54 PT 31.5 Seconds (9.4-12.1) H 05/11/19 04:28 APTT 54.7 Seconds (26.0-36.0) H 05/10/19 22:22 Fibrinogen 690 mg/dL (169-393) H 05/12/19 04:00 D-Dimer 5867 ng/mLFEU (0-500) H 05/10/19 20:54 ABG pH 7.18 pH Units (7.32-7.45) L* 05/12/19 04:39 ABG pCO2 49 mmHg (35-45) H 05/11/19 06:38 ABG pO2 81 mmHg (85-104) L 05/11/19 18:39 ABG HCO3 14 mEq/L (21-27) L 05/12/19 04:39 ABG Total CO2 15 mEq/L (20-26) L 05/12/19 04:39 ABG O2 Saturation 91 % (95-98) L 05/11/19 18:39 ABG Base Excess -14 mEq/L (-2 to 3) L 05/12/19 04:39 VBG pH 6.84 pH Units (7.32-7.42) L* 05/11/19 04:54 VBG pCO2 82 mmHg (41-51) H* 05/11/19 04:54 VBG pO2 74 mmHg (25-50) H 05/11/19 04:54 VBG HCO3 14 mEq/L (21-27) L 05/11/19 04:54 Sodium 129 mEq/L (136-145) L D 05/11/19 04:28 Potassium 5.4 mEq/L (3.5-5.1) H 05/12/19 04:00 Carbon Dioxide 14 mEq/L (23-29) L 05/12/19 04:00 BUN 66 mg/dL (8-23) H 05/12/19 04:00 Creatinine 3.24 mg/dL (0.60-1.20) H 05/12/19 04:00 Est GFR ( Amer) 17 (> 60) L 05/12/19 04:00 Est GFR (Non-Af Amer) 14 (> 60) L 05/12/19 04:00 Glucose 122 mg/dL (70-105) H 05/12/19 04:00 POC Glucose 108 mg/dL (70-99) H 05/12/19 00:06 Calculated Osmolality 306 (280-300) H 05/12/19 04:00 Lactic Acid 4.2 mmol/L (0.5-2.2) H* 05/12/19 01:54 Calcium 6.3 mg/dL (8.6-10.3) L 05/12/19 04:00 Venous Ioniz Calcium 0.87 mmol/L (1.15-1.35) L 05/12/19 05:05 Phosphorus 10.1 mg/dL (2.7-4.5) H 05/11/19 04:28 Magnesium 2.8 mg/dL (1.6-2.6) H 05/11/19 04:28 AST 333 Units/L (13-39) H 05/12/19 04:00 ALT 84 Units/L (7-52) H 05/12/19 04:00 Creatine Kinase > 88207 Units/L (30-223) H 05/12/19 04:00 Troponin I 0.15 ng/mL (< 0.04) H* 05/12/19 04:00 Serum Total Protein 4.6 g/dL (6.4-8.9) L 05/12/19 04:00 Albumin 2.3 g/dL (3.5-5.7) L 05/12/19 04:00 Globulin 2.3 g/dL (2.4-3.5) L 05/12/19 04:00 Albumin/Globulin Ratio 1.0 (1.1-2.2) L 05/12/19 04:00 HDL Cholesterol 31 mg/dL (40-59) L 05/11/19 04:28 Procalcitonin > 100.00 ng/mL (0.00-0.15) H 05/10/19 16:22 Urine Clarity Turbid (Clear) A 05/10/19 20:38 Urine Protein 100 mg/dL (Neg-Trace) H 05/10/19 20:38 Urine Blood Large (Negative) H 05/10/19 20:38 Urine Bilirubin Small (Negative) H 05/10/19 20:38 Urine Microscopic RBC 3-5 per hpf (0-3) H 05/10/19 20:38 Urine Microscopic WBC 5-15 per hpf (0-3) H 05/10/19 20:38 Ur Squamous Epith Cells Many per lpf (None-Few) H 05/10/19 20:38 Amorphous Sediment Moderate (Few) H 05/10/19 20:38 Urine Bacteria Many per hpf (None-Few) H 05/10/19 20:38 Ur Culture Indicated? YES (NO) A 05/10/19 20:38 Entero/Rhino (PCR) DETECTED (Not Detect) A 05/10/19 17:00 - Microbiology Findings Microbiology Findings: Microbiology, Last 48 Hours 05/10/19 20:38 Urine Culture - Final Urine,Catheterized (Straight) No growth. 05/10/19 15:12 Legionella Antigen - Final Urine,Clean Catch Streptococcus pneumoniae Antigen (M - Final - Clinical Findings Intake & Output: Intake & Output 05/11/19 05/12/19 05/12/19 23:59 07:59 15:59 Intake Total 1599 / 6927.55 200 / 1645.5 1445.5 / 1645.5 Output Total 0 / 75 75 / 75 Balance 1589 / 6692.55 200 / 1570.5 1370.5 / 1570.5 - Attending Attestation I examined this patient and my medical decision-making was reviewed with the Resident Physician. I agree with the documented findings, disposition and treatment plan as described except to the extent set forth below. We independently had [id number] contact with the patient I spent 36min of Critical Care time with this patient. It involved decision making of high complexity to assess, manipulate, and support vital organ system failure and/or to prevent further life threatening deterioration of the patient's condition. The time involved in the performance of separately reportable procedures was not counted toward critical care time. Patient seen and examined at bedside Labs, radiology, chart personally reviewed. Management was reviewed during multidisciplinary critical care rounds. INTERVENTION SPECIALIST: Remains encephalopathic off and she is unable to follow commands Pulm: Acute on chronic hypoxic hypercapnic respiratory failure on vent stable gas exchange will continue increased minute ventilation to compensate for metabolic acidosis. She has pneumonia and COPD exacerbation both of which are being treated Cards: Distributive shock secondary to sepsis she has persistent evidence of ischemia although vasopressor requirements have been reduced markedly. Limited echocardiogram without evidence of cardiac dysfunction. GI: She is at risk for abdominal compartments syndrome plan for measuring bladder pressure today general surgery following very poor surgical candidate Nutrition: Nothing by mouth for now because of critical illness and concern for worsening abdominal syndrome Renal: Persistent life-threatening metabolic acidosis secondary to renal failure and lactate. Likely will need [facility] nephrology following potassium is stable at around 5 continue treatment for rhabdomyolysis UOP Monitored, Cont to Trend sCr and monitor Electrolytes. ID: Septic shock secondary to strep pneumoniae bacteremia very high mortality related to this she is on broad-spectrum antibiotics Heme/Onc: Coagulopathy is improving and can likely's safely start DVT prophylaxis as she is extremely high risk for venous thromboembolism Endo: Glucose Monitored Integ/MSK: Skin Care per routine ICU Nursing Protocol to prevent ulcers. Lines: All lines examined without evidence of infection : Dispo: Monitor in ICU for critical illness CODE: Full code the patient mortality for this patient very high. I did update the family. Complex social situation including son who is incarcerated but has been made distance by the patient herself apparently. Her personal belongings and note that Juvencio is her emergency contact is her nephew he has been making decisions up to this point for her care but never has been given legal guardianship. I feel that Juvencio and his brother along with dense Sarah who is a ICU nurse have the patient's best interest at heart and they are leaning more towards a comfort measures which they feel would be more in keeping with the patient's wishes as well as her underlying medical comorbid conditions but will have ongoing discussions. Formal social service consult today and will likely will need palliative care consult tomorrow
[2019-05-12] MEDS ORDERED: Sodium Bicarbonate 50 MEQ/50 ML VIAL IVP ONE (08:30)
[2019-05-12] MEDS ORDERED: levoFLOXacin 500 MG/100 ML 500 MG/100 ML BAG IVPB SCH (09:00)
--- NOTE | 2019-05-12 09:01 | AcuteCareSurgery Progress Note ---
Date of Encounter: 05/12/19 Time of Encounter: 09:01 - Assessment and Plan (1) Abnormal CT of the abdomen Current Visit: Yes Status: Acute Patient is off pressors but maintains intubated. She is anuric at this time. Abdomen is somewhat semirigid. Although there was little concern about bowel ischemia there is the possibility in the setting of developing abdominal compartment syndrome. Her prognosis is poor. Additionally, she has Streptococcus bacteremia. No new recommendations at this time. Subjective Patient reports: other (Patient intubated. Off pressors. Anuric. Non- responsive.) Objective Vital Signs - Last 8 Hours Temp Pulse Resp BP Pulse Ox 05/12/19 08:32 96.8 F L 05/12/19 07:00 107 24 140/61 98 05/12/19 06:16 24 126/55 93 05/12/19 06:00 110 24 148/62 97 05/12/19 05:00 105 24 122/65 95 05/12/19 04:21 24 122/73 99 05/12/19 04:00 108 24 117/71 96 05/12/19 03:47 97.6 F 05/12/19 03:44 109 05/12/19 03:00 109 24 108/69 99 05/12/19 02:00 107 24 113/70 99 05/12/19 01:30 24 115/59 100 Intake and Output 05/11/19 05/12/19 05/12/19 23:59 07:59 15:59 Intake Total 1599 / 6927.55 200 / 200 Output Total 10 / 235 0 / 75 75 / 75 Balance 1589 / 6692.55 200 / 125 -75 / 125 Intake: IV Fluids 1599 / 6927.55 200 / 200 FentaNYL (PF) 1,000 MCG In 0.9 100 / 300 100 / 100 % Sodium Chloride 80 ML @ 50 MCG/HR 5 mls/hr [facility] Rx #:[id number] Levophed 4 MG In 0.9 % Sodium 190 / 508 Chloride 250 ML @ 8 MCG/MIN 30. 48 mls/hr [facility] Rx#: [id number] Diprivan 1,000 mg In 100 ml @ 64 / 64 10 MCG/KG/MIN 2.31 mls/hr IVC . Q24H [facility] Rx#:[id number] Sodium Bicarbonate 75 MEQ In D5 1075 / 1075 % And 0.45% Nacl 1000 Ml Bag 1, 000 ML @ 125 mls/hr IVC .Q8H36M [facility] Rx#:[id number] Azactam 2,000 MG In Water for inj. (sterile) 20 ML @ 300 mls/ hr IVP Q12H [facility] Rx#:[id number] Calcium Gluconate 1gm/50mL 1 gm 50 / 50 In 50 ml @ 91.65 mls/hr IVPB ONCE ONE Rx#:[id number] Flagyl Premix 500 MG/100 ML 500 100 / 200 100 / 100 mg In 100 ml @ 100 mls/hr IVPB Q8HR [facility] Rx#:[id number] Output: Catheter 0 Gastric Drainage 50 / 50 Other: Blood Glucose* 63 119 119 - Abdomen Abdomen: Present: rigid (No bowel sounds. Semi-rigid) - Labs 05/12/19 04:00 05/12/19 04:00 Diabetes panel 05/11/19 05/11/19 05/11/19 Range/Units 04:28 08:22 16:00 Sodium 136 136 (136-145) mEq/L Potassium 5.4 H D 5.8 H (3.5-5.1) mEq/L Chloride 107 107 (98-107) mEq/L Carbon Dioxide 14 L 11 L (23-29) mEq/L BUN 58 H 63 H (8-23) mg/dL Creatinine 2.56 H 2.97 H (0.60-1.20) mg/dL Glucose 155 H 86 (70-105) mg/dL Calcium 6.5 L 6.8 L (8.6-10.3) mg/dL AST 333 H (13-39) Units/L ALT 73 H (7-52) Units/L Alkaline Phosphatase 50 (34-104) Units/L Albumin 2.5 L (3.5-5.7) g/dL Triglycerides 68 (< 150) mg/dL HDL Cholesterol 31 L (40-59) mg/dL 05/12/19 05/12/19 Range/Units 01:54 04:00 Sodium 138 138 (136-145) mEq/L Potassium 5.5 H 5.4 H (3.5-5.1) mEq/L Chloride 107 106 (98-107) mEq/L Carbon Dioxide 12 L 14 L (23-29) mEq/L BUN 64 H 66 H (8-23) mg/dL Creatinine 3.18 H 3.24 H (0.60-1.20) mg/dL Glucose 127 H 122 H (70-105) mg/dL Calcium 6.5 L 6.3 L (8.6-10.3) mg/dL AST 344 H 333 H (13-39) Units/L ALT 83 H 84 H (7-52) Units/L Alkaline Phosphatase 49 49 (34-104) Units/L Albumin 2.3 L 2.3 L (3.5-5.7) g/dL Triglycerides (< 150) mg/dL HDL Cholesterol (40-59) mg/dL Calcium panel 05/11/19 05/11/19 05/12/19 Range/Units 08: 16:00 01:54 Calcium 6.5 L 6.8 L 6.5 L (8.6-10.3) mg/dL Albumin 2.5 L 2.3 L (3.5-5.7) g/dL 05/12/19 Range/Units 04:00 Calcium 6.3 L (8.6-10.3) mg/dL Albumin 2.3 L (3.5-5.7) g/dL Pituitary panel 05/11/19 05/11/19 05/12/19 Range/Units 08:22 16:00 01:54 Sodium 136 136 138 (136-145) mEq/L Potassium 5.4 H D 5.8 H 5.5 H (3.5-5.1) mEq/L Chloride 107 107 107 (98-107) mEq/L Carbon Dioxide 14 L 11 L 12 L (23-29) mEq/L BUN 58 H 63 H 64 H (8-23) mg/dL Creatinine 2.56 H 2.97 H 3.18 H (0.60-1.20) mg/dL Glucose 155 H 86 127 H (70-105) mg/dL Calcium 6.5 L 6.8 L 6.5 L (8.6-10.3) mg/dL 05/12/19 Range/Units 04:00 Sodium 138 (136-145) mEq/L Potassium 5.4 H (3.5-5.1) mEq/L Chloride 106 (98-107) mEq/L Carbon Dioxide 14 L (23-29) mEq/L BUN 66 H (8-23) mg/dL Creatinine 3.24 H (0.60-1.20) mg/dL Glucose 122 H (70-105) mg/dL Calcium 6.3 L (8.6-10.3) mg/dL Adrenal panel 05/11/19 05/11/19 05/12/19 Range/Units 08:22 16:00 01:54 Sodium 136 136 138 (136-145) mEq/L Potassium 5.4 H D 5.8 H 5.5 H (3.5-5.1) mEq/L Chloride 107 107 107 (98-107) mEq/L Carbon Dioxide 14 L 11 L 12 L (23-29) mEq/L BUN 58 H 63 H 64 H (8-23) mg/dL Creatinine 2.56 H 2.97 H 3.18 H (0.60-1.20) mg/dL Glucose 155 H 86 127 H (70-105) mg/dL Calcium 6.5 L 6.8 L 6.5 L (8.6-10.3) mg/dL Total Bilirubin 0.5 0.4 (0.3-1.0) mg/dL AST 333 H 344 H (13-39) Units/L ALT 73 H 83 H (7-52) Units/L Alkaline Phosphatase 50 49 (34-104) Units/L Albumin 2.5 L 2.3 L (3.5-5.7) g/dL 05/12/19 Range/Units 04:00 Sodium 138 (136-145) mEq/L Potassium 5.4 H (3.5-5.1) mEq/L Chloride 106 (98-107) mEq/L Carbon Dioxide 14 L (23-29) mEq/L BUN 66 H (8-23) mg/dL Creatinine 3.24 H (0.60-1.20) mg/dL Glucose 122 H (70-105) mg/dL Calcium 6.3 L (8.6-10.3) mg/dL Total Bilirubin 0.4 (0.3-1.0) mg/dL AST 333 H (13-39) Units/L ALT 84 H (7-52) Units/L Alkaline Phosphatase 49 (34-104) Units/L Albumin 2.3 L (3.5-5.7) g/dL Consult Discharge Plan - Plan Referrals: Donna Patterson MD [Primary Care Provider] -
[2019-05-12] MEDS ORDERED: Sodium Bicarbonate 50 MEQ/50 ML VIAL ONE (09:13)
[2019-05-12] MEDS: MetroNIDAZOLE 500 MG/100 ML 500 MG/100 ML BAG IVPB SCH ×3 (09:17→23:14)
[2019-05-12] MEDS: Chlorhexidine Rinse 15 ML MOUTHWASH MM SCH ×2 (09:17→20:06)
[2019-05-12] MEDS: methylPREDNISolone 125 MG/2 ML VIAL IVP SCH ×2 (09:35→18:09)
[2019-05-12] MEDS ORDERED: Sodium Bicarbonate 75 MEQ in D5% in 0.45% NACL 1,000 ML IVC SCH ×2 (10:15→13:30)
[2019-05-12 10:24] LABS: Creatine Kinase > 20000 Units/L (30-223)
[2019-05-12] MEDS ORDERED: 0.9 % Sodium Chloride 250 ML ONE (13:12)
[2019-05-12 14:01] LABS: Hematocrit 29.9 % (35.3-44.9); Hemoglobin 9.2 g/dL (11.5-15.4); Mean Corpuscular HGB Conc 30.8 g/dL (31.6-35.5); Mean Corpuscular Hemoglobin 28.6 pg (28.0-33.3); Mean Corpuscular Volume 92.9 fL (83.0-100.0); Mean Platelet Volume 9.4 fL (9.4-12.4); Nucleated Red Blood Cells 0.9 /100 WBC (0); Platelet Count 122 K/mcL (140-400); Red Blood Count 3.22 M/mcL (3.82-4.97); Red Cell Distribution Width 17.7 % (11.5-14.5); White Blood Count 5.8 K/mcL (4.3-11.1)
[2019-05-12 14:21] LABS: Albumin 2.3 g/dL (3.5-5.7); Bilirubin,Total 0.4 mg/dL (0.3-1.0); Calcium 6.8 mg/dL (8.6-10.3); Globulin 2.3 g/dL (2.4-3.5); Potassium 5.2 mEq/L (3.5-5.1); Total Protein 4.6 g/dL (6.4-8.9)
[2019-05-12 14:26] LABS: Lymphocytes # 0.5 K/mcL (0.6-4.6); Monocytes # 0.1 K/mcL (0.0-1.3); Neutrophils # 5.2 K/mcL (1.6-8.9); Platelet Estimate Slight Decrease (Normal)
[2019-05-12] MEDS: Sodium Bicarbonate 150 MEQ in D5% in Water 1,000 ML IVC SCH ×3 (14:50→21:34)
[2019-05-12] MEDS ORDERED: *HR* Metoprolol 5 MG/5 ML VIAL IVP PRN (15:03)
[2019-05-12 15:47] LABS: VBG Ionized Calcium 0.86 mmol/L (1.15-1.35)
[2019-05-12 16:03] LABS: Albumin 2.1 g/dL (3.5-5.7); Bilirubin,Total 0.3 mg/dL (0.3-1.0); Calcium 6.4 mg/dL (8.6-10.3); Globulin 2.2 g/dL (2.4-3.5); Potassium 4.9 mEq/L (3.5-5.1); Total Protein 4.3 g/dL (6.4-8.9)
[2019-05-12 16:42] LABS: Basophils % 0.4 %; Hematocrit 28.1 % (35.3-44.9); Hemoglobin 8.6 g/dL (11.5-15.4); Immature Granulocytes % 1.1 % (0-4); Lymphocytes # 0.1 K/mcL (0.6-4.6); Lymphocytes % 1.4 %; Mean Corpuscular HGB Conc 30.6 g/dL (31.6-35.5); Mean Corpuscular Volume 94.6 fL (83.0-100.0); Mean Platelet Volume 9.4 fL (9.4-12.4); Monocytes # 0.2 K/mcL (0.0-1.3); Monocytes % 2.8 %; Neutrophils # 5.4 K/mcL (1.6-8.9); Nucleated Red Blood Cells 0.5 /100 WBC (0); Platelet Count 103 K/mcL (140-400); Red Blood Count 2.97 M/mcL (3.82-4.97); Red Cell Distribution Width 17.9 % (11.5-14.5); Segmented Neutrophils % 94.3 %; White Blood Count 5.7 K/mcL (4.3-11.1)
--- NOTE | 2019-05-12 16:55 | Event Note ---
Date of Encounter: 05/12/19 Time of Encounter: 16:56 Spoke to Juvencio Aldana ( and [employer] in past) on phone plan to change code status to DNAR palliative consult in AM tomorrow.
[2019-05-12] MEDS ORDERED: Calcium Chloride 1,000 MG in 0.9 % Sodium Chloride 100 ML IVPB ONE (16:56)
[2019-05-12 21:29] LABS: Basophils % 0.2 %; Segmented Neutrophils % 94.7 %
[2019-05-12 21:31] LABS: Hemoglobin 8.4 g/dL (11.5-15.4); Immature Granulocytes % 1.1 % (0-4); Immature Platelets 1.4 % (1.1-6.1); Lymphocytes % 0.7 %; Mean Corpuscular HGB Conc 31.1 g/dL (31.6-35.5); Mean Corpuscular Hemoglobin 28.6 pg (28.0-33.3); Mean Corpuscular Volume 91.8 fL (83.0-100.0); Mean Platelet Volume 9.7 fL (9.4-12.4); Monocytes # 0.2 K/mcL (0.0-1.3); Monocytes % 3.3 %; Neutrophils # 5.1 K/mcL (1.6-8.9); Nucleated Red Blood Cells 1.1 /100 WBC (0); Red Blood Count 2.94 M/mcL (3.82-4.97); Red Cell Distribution Width 17.7 % (11.5-14.5); White Blood Count 5.4 K/mcL (4.3-11.1)
[2019-05-12 21:47] LABS: Albumin 2.2 g/dL (3.5-5.7); Albumin/Globulin Ratio 1.1 (1.1-2.2); Bilirubin,Total 0.4 mg/dL (0.3-1.0); Calcium 6.7 mg/dL (8.6-10.3); Potassium 4.9 mEq/L (3.5-5.1); Total Protein 4.2 g/dL (6.4-8.9)
[2019-05-12 22:56] LABS: Platelet Count 91 K/mcL (140-400)
[2019-05-12 23:00] LABS: Dohle Bodies Present (Not Present); Platelet Estimate Decreased (Normal)
[2019-05-12 23:01] LABS: Anisocytosis 1+ (Not Present)
--- NOTE | 2019-05-12 23:18 | Nephrology Progress Note ---
Date of Encounter: 05/12/19 Time of Encounter: 13:00 - Assessment and Plan (1) ARNOLDO (acute kidney injury) Current Visit: Yes Status: Acute SCr continues to worse at 3.24, GFR 15 UOP noted at 185 still poor despite volume repletion No acute indication for [employer] at this time, family to decide later today goals of care Continue to avoid nephrotoxins if possible Will change IVF to D5W with 3 amp bicarb (2) Acute respiratory failure Current Visit: Yes Status: Acute Per pulm/critical care Qualifiers: Respiratory failure complication: hypoxia and hypercapnia Qualified Code(s): J96.01 - Acute respiratory failure with hypoxia; J96.02 - Acute respiratory failure with hypercapnia (3) Bilateral pneumonia Current Visit: Yes Status: Acute Continue abx per primary team Qualifiers: Pneumonia type: due to unspecified organism Lung location: unspecified part of lung Qualified Code(s): J18.9 - Pneumonia, unspecified organism (4) Hyperkalemia Current Visit: Yes Status: Acute Potassium noted at 5.4 still mildly elevated but fairly stable More bicarb should improve this (5) Rhabdomyolysis Current Visit: Yes Status: Acute CPK continues to worse, continue IVF Qualifiers: Rhabdomyolysis type: non-traumatic Qualified Code(s): M62.82 - Rhabdomyolysis (6) Septic shock Current Visit: Yes Status: Acute As above (7) Abnormal CT of the abdomen Current Visit: Yes Status: Acute Per surgery Subjective Principal diagnosis: septic shock Interval history: Interim noted, pt seen and examined still intubated and sedated with a co-worker at bedside. Off pressors. Objective - Vital Signs Vital signs: Vital Signs Temp Pulse Resp BP Pulse Ox 05/12/19 23:00 98.1 F 100 24 119/78 100 05/12/19 22:04 24 100 05/12/19 22:00 102 24 114/75 100 05/12/19 21:00 103 24 111/70 100 05/12/19 20:12 24 100 05/12/19 20:00 104 24 137/78 100 05/12/19 19:41 98.6 F 05/12/19 19:00 110 28 135/86 99 05/12/19 18:00 104 24 132/75 99 05/12/19 17:40 24 135/80 100 05/12/19 17:00 110 24 149/89 99 09/22/19 16:00 113 24 145/90 99 05/12/19 15:40 24 153/94 100 05/12/19 15:00 97.5 F L 112 24 153/94 99 05/12/19 14:00 112 24 157/94 99 05/12/19 13:33 24 165/98 96 05/12/19 13:11 98.3 F 05/12/19 13:00 115 24 149/95 95 05/12/19 12:00 118 24 95 05/12/19 11:11 24 107/99 98 05/12/19 11:00 112 24 152/94 99 05/12/19 10:00 111 24 106/72 99 05/12/19 09:45 24 108/76 99 05/12/19 09:00 112 24 113/65 99 05/12/19 08:32 96.8 F L 05/12/19 08:00 109 24 136/66 98 05/12/19 07:32 24 142/60 97 05/12/19 07:00 111 24 140/61 98 05/12/19 06:16 24 126/55 93 05/12/19 06:00 110 24 148/62 97 05/12/19 05:00 105 24 122/65 95 05/12/19 04:21 24 122/73 99 05/12/19 04:00 108 24 117/71 96 05/12/19 03:47 97.6 F 05/12/19 03:44 109 05/12/19 03:00 109 24 108/69 99 05/12/19 02:00 107 24 113/70 99 05/12/19 01:30 24 115/59 100 05/12/19 01:00 108 24 111/68 99 05/12/19 00:00 97.9 F 112 24 113/60 99 05/11/19 23:53 24 123/62 99 Intake and Output 05/12/19 05/12/19 05/12/19 07:59 15:59 23:59 Intake Total 200 / 3145.5 1445.5 / 3145.5 1500 / 3145.5 Output Total 0 / 160 75 / 160 85 / 160 Balance 200 / 2985.5 1370.5 / 2985.5 1415 / 2985.5 Intake: IV Fluids 200 / 3145.5 1445.5 / 3145.5 1500 / 3145.5 FentaNYL (PF) 1,000 MCG In 0.9 100 / 240 140 / 240 % Sodium Chloride 80 ML @ 50 MCG/HR 5 mls/hr IVC CONT [facility] Rx #:[id number] Sodium Bicarbonate 75 MEQ In D5 1075 / 1075 % And 0.45% Nacl 1000 Ml Bag 1, 000 ML @ 125 mls/hr IVC .Q8H36M [facility] Rx#:[id number] Sodium Bicarbonate 150 MEQ In 1150 / 1150 Dextrose 5% 1,000 ML @ 150 mls/ hr IVC .Q7H40M [facility] Rx#: [id number] Calcium Chloride 1,000 MG In 0. 110 / 110 9 % Sodium Chloride 100 ML @ 100 mls/hr IVPB ONCE ONE Rx#: [id number] Calcium Gluconate 2,000 MG In 0 120 / 120 .9 % Sodium Chloride 100 ML @ 220 mls/hr IVPB ONCE ONE Rx#: [id number] Flagyl Premix 500 MG/100 ML 500 100 / 300 100 / 300 100 / 300 mg In 100 ml @ 100 mls/hr IVPB Q8HR [facility] Rx#:[id number] AquaMephyton 5 MG In 0.9 % 50.5 / 50.5 Sodium Chloride 50 ML @ 100 mls /hr IVPB DAILY [facility] Rx#: [id number] Levaquin Premix 500mg/100mL 500 100 / 100 mg In 100 ml @ 100 mls/hr IVPB Q48H [facility] Rx#:[id number] Oral 0 / 0 Output: Catheter 0 / 110 25 / 110 85 / 110 Gastric Drainage 50 / 50 Other: Weight 60 kg Blood Glucose* 119 139 118 Patient Weight 05/12/19 23:59 Weight 60 kg - General Appearance General appearance: Present: sedated on ventilator, intubated, frail EENT: Present: ATNC, mucous membranes moist Neck: Present: no JVD, supple Respiratory: Present: course breath sounds Cardiology: Present: no edema, normal S1, normal S2 Gastrointestinal: Present: no tenderness, no guarding Integumentary: Present: cool/clammy Additional Comments: sedated Musculoskeletal: Present: no deformities Additional Comments: sedated - Lab 05/12/19 21:00 05/12/19 21:00 Most recent lab results 05/12/19 05/12/19 05/12/19 13:34 15:30 21:00 Calcium 6.8 L 6.4 L 6.7 L Consult Discharge Plan - Plan Referrals: Donna Patterson MD [Primary Care Provider] -
[2019-05-12] MEDS: Norepinephrine 4 MG in 0.9 % Sodium Chloride 250 ML IVC SCH (23:44)
[2019-05-12] MEDS: Vasopressin 40 UNIT in D5% in Water 100 ML IVC SCH (23:44)
[2019-05-13] MEDS: Ipratropium/Albuterol Neb 3 ML IH SCH ×4 (00:22→11:21)
[2019-05-13] MEDS: Artificial Tears SOLN 15 ML BOTTLE BOTH EYES SCH ×3 (03:05→11:41)
[2019-05-13 03:19] LABS: Hematocrit 26.6 % (35.3-44.9); Hemoglobin 8.4 g/dL (11.5-15.4); Mean Corpuscular HGB Conc 31.6 g/dL (31.6-35.5); Mean Corpuscular Hemoglobin 28.7 pg (28.0-33.3); Mean Corpuscular Volume 90.8 fL (83.0-100.0); Red Blood Count 2.93 M/mcL (3.82-4.97)
[2019-05-13 03:21] LABS: Immature Platelets 1.6 % (1.1-6.1); Mean Platelet Volume 10.9 fL (9.4-12.4); Nucleated Red Blood Cells 0.7 /100 WBC (0); Red Cell Distribution Width 17.5 % (11.5-14.5); White Blood Count 6.1 K/mcL (4.3-11.1)
[2019-05-13 03:35] LABS: INR 0.9; Prothrombin Time 10.3 Seconds (9.4-12.1)
[2019-05-13 03:54] LABS: Alanine Aminotransferase 103 Units/L (7-52); Albumin 2.1 g/dL (3.5-5.7); Alkaline Phosphatase 76 Units/L (34-104); Aspartate Amino Transferase 312 Units/L (13-39); BUN/Creatinine Ratio 21 (6-26); Bilirubin,Total 0.3 mg/dL (0.3-1.0); Blood Urea Nitrogen 74 mg/dL (8-23); Calcium 6.3 mg/dL (8.6-10.3); Carbon Dioxide 22 mEq/L (23-29); Chloride 99 mEq/L (98-107); Creatine Kinase > 20000 Units/L (30-223); Globulin 2.1 g/dL (2.4-3.5); Glucose 125 mg/dL (70-105); Magnesium 2.2 mg/dL (1.6-2.6); Osmolality,Calculated 315 (280-300); Phosphorous 6.7 mg/dL (2.7-4.5); Potassium 4.6 mEq/L (3.5-5.1); Sodium 141 mEq/L (136-145); Total Protein 4.2 g/dL (6.4-8.9); Vancomycin,Random 13 mcg/mL; eGFR For African Americans 16 (> 60); eGFR For Non-African Americans 13 (> 60)
[2019-05-13 04:00] LABS: Platelet Count 76 K/mcL (140-400)
[2019-05-13 04:45] LABS: Lymphocytes # 0.2 K/mcL (0.6-4.6); Neutrophils # 5.9 K/mcL (1.6-8.9)
[2019-05-13 04:46] LABS: Platelet Estimate Decreased (Normal)
[2019-05-13] MEDS: methylPREDNISolone 125 MG/2 ML VIAL IVP SCH (05:01)
[2019-05-13] MEDS: Sodium Bicarbonate 150 MEQ in D5% in Water 1,000 ML IVC SCH ×2 (05:02→13:08)
[2019-05-13 05:04] LABS: ABG Base Excess 1 mEq/L (-2 to 3); ABG HCO3 25 mEq/L (21-27); ABG Oxygen Saturation 99 % (95-98); ABG PCO2 36 mmHg (35-45); ABG PH 7.45 pH Units (7.32-7.45); ABG PO2 124 mmHg (85-104); ABG TCO2 26 mEq/L (20-26); Blood Gas Modality ASSIST CONTROL; Blood Gas PEEP 8 cm H2O; Blood Gas VT 450 cc
[2019-05-13] MEDS: Budesonide/Formoterol 160/4.5 1 PUFF INH IH SCH (07:41)
[2019-05-13] MEDS: Tiotropium 18 MCG inhalation IH SCH (07:48)
[2019-05-13] MEDS: MetroNIDAZOLE 500 MG/100 ML 500 MG/100 ML BAG IVPB SCH (07:51)
[2019-05-13] MEDS: Chlorhexidine Rinse 15 ML MOUTHWASH MM SCH (07:51)
[2019-05-13] MEDS: FentaNYL (PF) 1,000 MCG in 0.9 % Sodium Chloride 80 ML IVC SCH (08:50)
--- NOTE | 2019-05-13 08:54 | Neurology Progress Note ---
Date of Encounter: 05/13/19 Time of Encounter: 07:35 Assessment and Plan (1) Acute metabolic encephalopathy Current Visit: Yes Status: Acute Patient did not show any his improvement in her neurological status mostly remain the same at the moment family decided to make her DNR CCA keep her comfortable no further workup recommended at this time. Palliative care we will be consult to today We will follow family wishes agreed with current comfort care status Call us if needed Subjective Principal diagnosis: septic shock Interval history: Patient remain intubated no significant change in neurological status Family decided to make her DNR CC plan palliative consultation today] EEG was recommended yesterday the family did not want to have any further procedures done so it was canceled Objective - Constitutional Vitals: Temp Pulse Resp BP Pulse Ox 97.0 F L 105 24 133/94 98 05/13/19 08:04 05/13/19 08:00 05/13/19 08:00 05/13/19 08:00 05/13/19 08:00 - Neurological Exam Motor Examination: Present: other (Limited neurological examination currently p atient is intubated, minimal corneal reflexes no withdrawal to the deep pain) Results - Laboratory Findings CBC and BMP: 05/13/19 03:00 05/13/19 03:00 Abnormal lab findings: Abnormal lab results WBC 4.1 K/mcL (4.3-11.1) L D 05/11/19 16:51 RBC 2.93 M/mcL (3.82-4.97) L 05/13/19 03:00 Hgb 8.4 g/dL (11.5-15.4) L 05/13/19 03:00 Hct 26.6 % (35.3-44.9) L 05/13/19 03:00 MCV 104.8 fL (83.0-100.0) H 05/11/19 04:28 MCHC 31.1 g/dL (31.6-35.5) L 05/12/19 21:00 RDW 17.5 % (11.5-14.5) H 05/13/19 03:00 Plt Count 76 K/mcL (140-400) L 05/13/19 03:00 MPV 8.9 fL (9.4-12.4) L 05/12/19 04:00 Band Neutrophils % 10.0 % (0-4) H 05/13/19 03:00 Metamyelocytes % 2.0 % (0) H 05/11/19 04:28 Neutrophils # 1.0 K/mcL (1.6-8.9) L 05/11/19 04:28 Lymphocytes # 0.2 K/mcL (0.6-4.6) L 05/13/19 03:00 Nucleated RBCs/100 WBC 0.7 /100 WBC (0) H 05/13/19 03:00 Toxic Granulation Present (Not Present) A 05/11/19 16:51 Dohle Bodies Present (Not Present) A 05/12/19 21:00 Platelet Estimate Decreased (Normal) L 05/13/19 03:00 Anisocytosis 1+ (Not Present) A 05/12/19 21:00 Brenda Cells 1+ (Not Present) A 05/11/19 04:28 Acanthocytes (Spur) 1+ (Not Present) A 05/10/19 20:54 PT 31.5 Seconds (9.4-12.1) H 05/11/19 04:28 APTT 54.7 Seconds (26.0-36.0) H 05/10/19 22:22 Fibrinogen 690 mg/dL (169-393) H 05/12/19 04:00 D-Dimer 5867 ng/mLFEU (0-500) H 05/10/19 20:54 ABG pH 7.18 pH Units (7.32-7.45) L* 05/12/19 04:39 ABG pCO2 49 mmHg (35-45) H 05/11/19 06:38 ABG pO2 124 mmHg (85-104) H 05/13/19 05:01 ABG HCO3 14 mEq/L (21-27) L 05/12/19 04:39 ABG Total CO2 15 mEq/L (20-26) L 05/12/19 04:39 ABG O2 Saturation 99 % (95-98) H 05/13/19 05:01 ABG Base Excess -14 mEq/L (-2 to 3) L 05/12/19 04:39 VBG pH 6.84 pH Units (7.32-7.42) L* 05/11/19 04:54 VBG pCO2 82 mmHg (41-51) H* 05/11/19 04:54 VBG pO2 74 mmHg (25-50) H 05/11/19 04:54 VBG HCO3 14 mEq/L (21-27) L 05/11/19 04:54 Sodium 129 mEq/L (136-145) L D 05/11/19 04:28 Potassium 5.2 mEq/L (3.5-5.1) H 05/12/19 13:34 Carbon Dioxide 22 mEq/L (23-29) L 05/13/19 03:00 BUN 74 mg/dL (8-23) H 05/13/19 03:00 Creatinine 3.45 mg/dL (0.60-1.20) H 05/13/19 03:00 Est GFR ( Amer) 16 (> 60) L 05/13/19 03:00 Est GFR (Non-Af Amer) 13 (> 60) L 05/13/19 03:00 Glucose 125 mg/dL (70-105) H 05/13/19 03:00 POC Glucose 119 mg/dL (70-99) H 05/12/19 22:48 Calculated Osmolality 315 (280-300) H 05/13/19 03:00 Lactic Acid 4.2 mmol/L (0.5-2.2) H* 05/12/19 01:54 Calcium 6.3 mg/dL (8.6-10.3) L 05/13/19 03:00 Venous Ioniz Calcium 0.86 mmol/L (1.15-1.35) L 05/12/19 15:44 Phosphorus 6.7 mg/dL (2.7-4.5) H 05/13/19 03:00 Magnesium 2.8 mg/dL (1.6-2.6) H 05/11/19 04:28 AST 312 Units/L (13-39) H 05/13/19 03:00 ALT 103 Units/L (7-52) H 05/13/19 03:00 Creatine Kinase > 81759 Units/L (30-223) H 05/13/19 03:00 Troponin I 0.15 ng/mL (< 0.04) H* 05/12/19 04:00 Serum Total Protein 4.2 g/dL (6.4-8.9) L 05/13/19 03:00 Albumin 2.1 g/dL (3.5-5.7) L 05/13/19 03:00 Globulin 2.1 g/dL (2.4-3.5) L 05/13/19 03:00 Albumin/Globulin Ratio 1.0 (1.1-2.2) L 05/13/19 03:00 HDL Cholesterol 31 mg/dL (40-59) L 05/11/19 04:28 Procalcitonin > 100.00 ng/mL (0.00-0.15) H 05/10/19 16:22 Urine Clarity Turbid (Clear) A 05/10/19 20:38 Urine Protein 100 mg/dL (Neg-Trace) H 05/10/19 20:38 Urine Blood Large (Negative) H 05/10/19 20:38 Urine Bilirubin Small (Negative) H 05/10/19 20:38 Urine Microscopic RBC 3-5 per hpf (0-3) H 05/10/19 20:38 Urine Microscopic WBC 5-15 per hpf (0-3) H 05/10/19 20:38 Ur Squamous Epith Cells Many per lpf (None-Few) H 05/10/19 20:38 Amorphous Sediment Moderate (Few) H 05/10/19 20:38 Urine Bacteria Many per hpf (None-Few) H 05/10/19 20:38 Ur Culture Indicated? YES (NO) A 05/10/19 20:38 Entero/Rhino (PCR) DETECTED (Not Detect) A 05/10/19 17:00 Consult Discharge Plan - Plan Referrals: Donna Patterson MD [Primary Care Provider] -
[2019-05-13 11:32] LABS: Basophils % 0.1 %; Immature Granulocytes % 0.9 % (0-4)
[2019-05-13 11:34] LABS: Hematocrit 25.4 % (35.3-44.9); Immature Platelets 2.3 % (1.1-6.1); Lymphocytes # 0.1 K/mcL (0.6-4.6); Lymphocytes % 0.7 %; Mean Corpuscular HGB Conc 31.5 g/dL (31.6-35.5); Mean Corpuscular Hemoglobin 28.4 pg (28.0-33.3); Mean Corpuscular Volume 90.1 fL (83.0-100.0); Mean Platelet Volume 10.6 fL (9.4-12.4); Monocytes # 0.2 K/mcL (0.0-1.3); Monocytes % 2.7 %; Nucleated Red Blood Cells 0.9 /100 WBC (0); Red Blood Count 2.82 M/mcL (3.82-4.97); Red Cell Distribution Width 17.2 % (11.5-14.5); Segmented Neutrophils % 95.6 %; White Blood Count 8.1 K/mcL (4.3-11.1)
[2019-05-13 11:41] LABS: Albumin 2.1 g/dL (3.5-5.7); Bilirubin,Total 0.3 mg/dL (0.3-1.0); Globulin 2.1 g/dL (2.4-3.5); Potassium 4.4 mEq/L (3.5-5.1); Total Protein 4.2 g/dL (6.4-8.9)
[2019-05-13] MEDS ORDERED: *HR* Heparin 5,000 UNIT/ML VIAL SQ SCH (12:00)
[2019-05-13] MEDS ORDERED: Pantoprazole 40 MG VIAL IVP SCH (12:00)
[2019-05-13 13:01] LABS: Neutrophils # 7.7 K/mcL (1.6-8.9); Platelet Count 70 K/mcL (140-400)
[2019-05-13 13:03] LABS: Dohle Bodies Present (Not Present); Platelet Estimate Decreased (Normal)
[2019-05-13 13:12] VITALS: BP 118/72
[2019-05-13] MEDS ORDERED: Calcium Gluconate 1gm/50mL 1 GM/50 ML BAG IVPB SCH (13:30)
--- NOTE | 2019-05-13 13:31 | Pulmonology Progress Note ---
Date of Encounter: 05/13/19 Time of Encounter: 08:30 Assessment and Plan (1) Acute respiratory failure Current Visit: Yes Status: Acute Acute respiratory failure with hypoxia contributed by COPD exacerbation and bilateral pneumonia. Patient continued to be intubated and mechanically ventilated low tidal volume strategy patient gas exchange is stable ventilatory support is getting better. Qualifiers: Respiratory failure complication: hypoxia and hypercapnia Qualified Code(s): J96.01 - Acute respiratory failure with hypoxia; J96.02 - Acute respiratory failure with hypercapnia (2) Acute exacerbation of chronic obstructive airways disease Current Visit: No Status: Acute COPD exacerbation to continue the current regimen of bronchodilators. Patient continued to need intubation and mechanical ventilation will likely be able to be liberated from the future patient wants to be either DNR comfort care or DNRA . (3) Bilateral pneumonia Current Visit: Yes Status: Acute Bilateral lower lobe pneumonia to cover with broad-spectrum antibiotics. Qualifiers: Pneumonia type: due to unspecified organism Lung location: unspecified part of lung Qualified Code(s): J18.9 - Pneumonia, unspecified organism (4) Septic shock Current Visit: Yes Status: Acute Continue with supportive measures developed multiorgan dysfunction syndrome (5) ARNOLDO (acute kidney injury) Current Visit: Yes Status: Acute Patient has acute kidney injury nephrology on board appreciate their recommendations. (6) DVT prophylaxis Current Visit: Yes Status: Acute To Continue Heparin Subcutaneous. Subjective Principal diagnosis: septic shock Interval history: Patient presented with acute respiratory failure with bilateral pneumonia septic shock with encephalopathy with multiorgan dysfunction with acute kidney injury. No acute events overnight patient is still critically ill. Objective PUL Vital signs: Last Vital Signs Temp 99.1 F 05/13/19 12:17 Pulse 105 05/13/19 13:00 Resp 22 05/13/19 13:14 BP 118/72 05/13/19 13:14 Pulse Ox 99 05/13/19 13:14 General appearance: no acute distress, lethargic Eyes: nonicteric ENT: oropharynx moist Auscultation: bilateral: diminished breath sounds (In the bases), wheezes (Minimal scattered wheezes) Ventilator Settings Ventilator Settings: Ventilator Settings, Last 8 Hours Ventilator Tidal Volume 400 Setting Ventilator Tidal Volume 400 Setting Ventilator Tidal Volume 400 Setting Ventilator Tidal Volume 400 Setting Ventilator Tidal Volume 400 Setting Ventilator Tidal Volume 400 Setting Ventilator Tidal Volume 400 Setting Ventilator Tidal Volume 400 Setting Ventilator Tidal Volume 450 Setting Ventilator Tidal Volume 450 Setting Ventilator Tidal Volume 450 Setting Ventilator Tidal Volume 450 Setting Ventilator Tidal Volume 450 Setting Ventilator Respiratory Rate 22 Setting Ventilator Respiratory Rate 22 Setting Ventilator Respiratory Rate 22 Setting Ventilator Respiratory Rate 22 Setting Ventilator Respiratory Rate 22 Setting Ventilator Respiratory Rate 22 Setting Ventilator Respiratory Rate 22 Setting Ventilator Respiratory Rate 22 Setting Ventilator Respiratory Rate 24 Setting Ventilator Respiratory Rate 24 Setting Ventilator Respiratory Rate 24 Setting Ventilator Respiratory Rate 24 Setting Ventilator Respiratory Rate 24 Setting Actual Respiratory Rate 22 Actual Respiratory Rate 22 Actual Respiratory Rate 22 Actual Respiratory Rate 24 Actual Respiratory Rate 24 Positive End Expiratory 8 Pressure Positive End Expiratory 8 Pressure Positive End Expiratory 8 Pressure Positive End Expiratory 8 Pressure Positive End Expiratory 8 Pressure Positive End Expiratory 8 Pressure Positive End Expiratory 8 Pressure Positive End Expiratory 8 Pressure Positive End Expiratory 8 Pressure Positive End Expiratory 8 Pressure Positive End Expiratory 8 Pressure Positive End Expiratory 8 Pressure Positive End Expiratory 8 Pressure Peak Inspiratory Airway 25 Pressure Peak Inspiratory Airway 25 Pressure Peak Inspiratory Airway 26 Pressure Peak Inspiratory Airway 27 Pressure Peak Inspiratory Airway 28 Pressure Peak Inspiratory Airway 27 Pressure Peak Inspiratory Airway 23 Pressure Peak Inspiratory Airway 25 Pressure Peak Inspiratory Airway 30 Pressure Peak Inspiratory Airway 31 Pressure Peak Inspiratory Airway 31 Pressure Peak Inspiratory Airway 29 Pressure Results - Laboratory Findings CBC and BMP: 05/13/19 10:44 05/13/19 10:44 ABG ABG pH 7.45 pH Units (7.32-7.45) 05/13/19 05:01 ABG pCO2 36 mmHg (35-45) 05/13/19 05:01 ABG pO2 124 mmHg (85-104) H 05/13/19 05:01 ABG O2 Saturation 99 % (95-98) H 05/13/19 05:01 PT/INR, D-dimer PT 10.3 Seconds (9.4-12.1) 05/13/19 03:00 D-Dimer 5867 ng/mLFEU (0-500) H 05/10/19 20:54 Abnormal lab findings: Abnormal lab results WBC 4.1 K/mcL (4.3-11.1) L D 05/11/19 16:51 RBC 2.82 M/mcL (3.82-4.97) L 05/13/19 10:44 Hgb 8.0 g/dL (11.5-15.4) L 05/13/19 10:44 Hct 25.4 % (35.3-44.9) L 05/13/19 10:44 MCV 104.8 fL (83.0-100.0) H 05/11/19 04:28 MCHC 31.5 g/dL (31.6-35.5) L 05/13/19 10:44 RDW 17.2 % (11.5-14.5) H 05/13/19 10:44 Plt Count 70 K/mcL (140-400) L 05/13/19 10:44 MPV 8.9 fL (9.4-12.4) L 05/12/19 04:00 Band Neutrophils % 10.0 % (0-4) H 05/13/19 03:00 Metamyelocytes % 2.0 % (0) H 05/11/19 04:28 Neutrophils # 1.0 K/mcL (1.6-8.9) L 05/11/19 04:28 Lymphocytes # 0.1 K/mcL (0.6-4.6) L 05/13/19 10:44 Nucleated RBCs/100 WBC 0.9 /100 WBC (0) H 05/13/19 10:44 Toxic Granulation Present (Not Present) A 05/11/19 16:51 Dohle Bodies Present (Not Present) A 05/13/19 10:44 Platelet Estimate Decreased (Normal) L 05/13/19 10:44 Anisocytosis 1+ (Not Present) A 05/12/19 21:00 [place] Cells 1+ (Not Present) A 05/11/19 04:28 Acanthocytes (Spur) 1+ (Not Present) A 05/10/19 20:54 PT 31.5 Seconds (9.4-12.1) H 05/11/19 04:28 APTT 54.7 Seconds (26.0-36.0) H 05/10/19 22:22 Fibrinogen 690 mg/dL (169-393) H 05/12/19 04:00 D-Dimer 5867 ng/mLFEU (0-500) H 05/10/19 20:54 ABG pH 7.18 pH Units (7.32-7.45) L* 05/12/19 04:39 ABG pCO2 49 mmHg (35-45) H 05/11/19 06:38 ABG pO2 124 mmHg (85-104) H 05/13/19 05:01 ABG HCO3 14 mEq/L (21-27) L 05/12/19 04:39 ABG Total CO2 15 mEq/L (20-26) L 05/12/19 04:39 ABG O2 Saturation 99 % (95-98) H 05/13/19 05:01 ABG Base Excess -14 mEq/L (-2 to 3) L 05/12/19 04:39 VBG pH 6.84 pH Units (7.32-7.42) L* 05/11/19 04:54 VBG pCO2 82 mmHg (41-51) H* 05/11/19 04:54 VBG pO2 74 mmHg (25-50) H 05/11/19 04:54 VBG HCO3 14 mEq/L (21-27) L 05/11/19 04:54 Sodium 129 mEq/L (136-145) L D 05/11/19 04:28 Potassium 5.2 mEq/L (3.5-5.1) H 05/12/19 13:34 Chloride 97 mEq/L (98-107) L 05/13/19 10:44 Carbon Dioxide 22 mEq/L (23-29) L 05/13/19 03:00 BUN 74 mg/dL (8-23) H 05/13/19 10:44 Creatinine 3.44 mg/dL (0.60-1.20) H 05/13/19 10:44 Est GFR ( Amer) 16 (> 60) L 05/13/19 10:44 Est GFR (Non-Af Amer) 13 (> 60) L 05/13/19 10:44 Glucose 132 mg/dL (70-105) H 05/13/19 10:44 POC Glucose 119 mg/dL (70-99) H 05/12/19 22:48 Calculated Osmolality 314 (280-300) H 05/13/19 10:44 Lactic Acid 4.2 mmol/L (0.5-2.2) H* 05/12/19 01:54 Calcium 6.0 mg/dL (8.6-10.3) L* 05/13/19 10:44 Venous Ioniz Calcium 0.86 mmol/L (1.15-1.35) L 05/12/19 15:44 Phosphorus 6.7 mg/dL (2.7-4.5) H 05/13/19 03:00 Magnesium 2.8 mg/dL (1.6-2.6) H 05/11/19 04:28 AST 286 Units/L (13-39) H 05/13/19 10:44 ALT 104 Units/L (7-52) H 05/13/19 10:44 Creatine Kinase > 12316 Units/L (30-223) H 05/13/19 03:00 Troponin I 0.15 ng/mL (< 0.04) H* 05/12/19 04:00 Serum Total Protein 4.2 g/dL (6.4-8.9) L 05/13/19 10:44 Albumin 2.1 g/dL (3.5-5.7) L 05/13/19 10:44 Globulin 2.1 g/dL (2.4-3.5) L 05/13/19 10:44 Albumin/Globulin Ratio 1.0 (1.1-2.2) L 05/13/19 10:44 HDL Cholesterol 31 mg/dL (40-59) L 05/11/19 04:28 Procalcitonin > 100.00 ng/mL (0.00-0.15) H 05/10/19 16:22 Urine Clarity Turbid (Clear) A 05/10/19 20:38 Urine Protein 100 mg/dL (Neg-Trace) H 05/10/19 20:38 Urine Blood Large (Negative) H 05/10/19 20:38 Urine Bilirubin Small (Negative) H 05/10/19 20:38 Urine Microscopic RBC 3-5 per hpf (0-3) H 05/10/19 20:38 Urine Microscopic WBC 5-15 per hpf (0-3) H 05/10/19 20:38 Ur Squamous Epith Cells Many per lpf (None-Few) H 05/10/19 20:38 Amorphous Sediment Moderate (Few) H 05/10/19 20:38 Urine Bacteria Many per hpf (None-Few) H 05/10/19 20:38 Ur Culture Indicated? YES (NO) A 05/10/19 20:38 Entero/Rhino (PCR) DETECTED (Not Detect) A 05/10/19 17:00 - Microbiology Findings Microbiology Findings: Microbiology, Last 48 Hours 05/10/19 20:38 Urine Culture - Final Urine,Catheterized (Straight) No growth. 05/10/19 15:12 Legionella Antigen - Final Urine,Clean Catch Streptococcus pneumoniae Antigen (M - Final - Clinical Findings Intake & Output: Intake & Output 05/12/19 05/13/19 05/13/19 23:59 07:59 15:59 Intake Total 1560 / 3205.5 1250 / 2600 1350 / 2600 Output Total 85 / 160 50 / 130 80 / 130 Balance 1475 / 3045.5 1200 / 2470 1270 / 2470 Weight 60 kg Consult Discharge Plan - Plan Referrals: Donna Patterson MD [Primary Care Provider] -
--- NOTE | 2019-05-13 13:33 | Palliative - Consult Note ---
Date of Encounter: 05/13/19 Time of Encounter: 14:46 - Assessment and Plan (1) Palliative care by specialist Current Visit: Yes Status: Acute Assessment and plan: Pt currently does not have capacity to make complex medical decisions d/t mental status. Pt is not , therefore son would be LNOK. Son is estranged and incarcerated in [place]. Per nephew, son is also deaf but is able to communicate over the phone with special technology at the [facility]. Pt's nephew confirms that pt's only sibling has and pt's parents are no longer living. Pt's two nephews, his nephews and great niece are at bedside today. Palliative Care team and SW has reached out to Elisa with [employer] regarding this case. Pt's nephew Juvencio informed us today that he has placed call to [facility] and reached out to her son AMOL. Son AMOL was able to call into the hospital and discuss his mothers current clinical condition with nephew Juvencio. AMOL is in agreement to focus on comfort care. Juvencio informs us that her son AMOL was able to "say his goodbyes" to his mother today over the phone. Palliative Care has updated [employer] as well as primary ICU team. All family is in agreement to transition patient to full comfort care today. (2) Goals of care, counseling/discussion Current Visit: Yes Status: Acute Assessment and plan: Discussed with family pt's clinical condition, prognosis, and treatment options in the context of her values, preferences and goals. All family is in agreement to liberate her from the ventilator and transition patient to full comfort care today. Discussed symptom management and comfort medications, questions answered. Pt's family will let Palliative Care team know when they are ready to transition to full comfort care. (3) End of life care Current Visit: Yes Status: Acute Assessment and plan: End of Life Care: Recommend the following when patient is transitioned to full comfort care, DNRCC status. Propofol drip previously discontinued. Extubation order entered by Palliative Care. Pain: Recommend to decrease IV Fentanyl gtt to 50mcg/hr. Give one-time dose of 50mcg of IV Fentanyl 15min prior to extubating. Recommend 50mcg IV Fentanyl Q15min PRN for pain/dyspnea. [orders entered] Dyspnea: Opioids as above will assist with sensation of shortness of breath. Fan to face PRN. Anxiety: Recommend one-time dose of IV Ativan 1mg 15minutes prior to extubating. Recommend IV Ativan 1mg Q2hr PRN for anxiety. [orders entered] Secretions: Recommend one-time dose of IV Robinul 0.2mg once 15minutes prior to extubating. [orders entered] (4) Septic shock Current Visit: Yes Status: Acute Assessment and plan: likely d/t PNA, acute respiratory failure. Possible abdominal process, colitis on CT scan-surgery consulted per primary team for evaluation. Per surgery, pt no t a candidate for surgical intervention. (5) ARNOLDO (acute kidney injury) Current Visit: Yes Status: Acute Assessment and plan: likely d/t hypoperfusion d/t septic shock. Nephrology following. (6) Acute respiratory failure Current Visit: Yes Status: Acute Assessment and plan: likely d/t pneumonia and sepsis, also with COPD exacerbation. Per family wishes, plan to extubate and transition to comfort care today. Qualifiers: Respiratory failure complication: unspecified whether with hypoxia or hypercapnia Qualified Code(s): J96.00 - Acute respiratory failure, unspecified whether with hypoxia or hypercapnia (7) Bilateral pneumonia Current Visit: Yes Status: Acute Assessment and plan: PNA on chest XR. Respiratory panel + for rhinovirus. Qualifiers: Pneumonia type: due to unspecified organism Lung location: unspecified part of lung Qualified Code(s): J18.9 - Pneumonia, unspecified organism (8) Coagulopathy Current Visit: Yes Status: Acute Assessment and plan: likely r/t septic shock, elevated INR of 2.4 on admission. (9) Hyperkalemia Current Visit: Yes Status: Acute Assessment and plan: Improved. Potassium 4.4 today. Nephrology following. (10) Rhabdomyolysis Current Visit: Yes Status: Acute Assessment and plan: Elevated CPK. Management per primary team. Nephrology following. Plan to transition to comfort care today as above. Qualifiers: Rhabdomyolysis type: non-traumatic Qualified Code(s): M62.82 - Rhabdomy olysis (11) COPD exacerbation Current Visit: Yes Status: Acute Palliative-CN HPI - Data of Consult Consult date: 05/13/19 Requesting Physician: Rivera Cornejo Primary Care Provider: Donna Patterson - Consult Narrative Palliative Care/Comfort Measures: Palliative care Reason for consult: Goals of Care, possible transition to comfort care History of present illness: Ms. Garcia is a 63 year old female with hx of COPD, diverticulitis s/p sigmoid resection, chronic left leg pain with implanted neurostimulator. Pt presented to the ED with increased shortness of breath. Pt found to be afebrile, increased heart rate and new oxygen requirement. Once admitted to the floor, pt was found to be hypotensive with worsening respiratory distress. She was intubated and transferred to the ICU. Hospitalization complicated by hyperkalemia, ARNOLDO, leukopenia, coagulopathy and rhabdomyolysis. Neurology and Nephrology both following. Palliative Care consulted today as patient's family requesting to discuss possible transition to comfort care. Pt's two nephews, his nephews and great niece are at bedside today. Nephew Juvencio is involved in patient's care and is listed as pt's emergency contact. Pt currently does not have capacity to make complex medical decisions d/t mental status. Pt is not , therefore son would be LNOK. Son is estranged and incarcerated in [place]. Per nephew, son is also deaf but is able to communicate over the phone with special technology at the [facility]. Pt's nephew confirms that pt's only sibling has and pt's parents are no longer living. Pt's nephew Juvencio informed us today that he has placed call to [facility] and reached out to her son AMOL. Son AMOL was able to call into the hospital and discuss his mothers current clinical condition with nephew Juvencio. Son AMOL is in agreement to focus on comfort care. Juvencio informs us that her son AMOL was able to "say his goodbyes" to his mother today over the phone. Discussed with family pt's clinical condition, prognosis, and treatment options in the context of her values, preferences and goals. All family is in agreement to liberate her from the ventilator and transition patient to full comfort care today. Discussed symptom management and comfort medications, questions answered. Pt's family will let Palliative Care team know when they are ready to transition to full comfort care. CC: Rivera Cornejo - Time Spent with Patient Time: Total time spent is greater than 50% in coordination of care (as documented) at patient's floor/unit and/or counseling patient: 110 minutes Past Med Surg Social Fam HX - Past Medical History Medical history: COPD, DVT, other Additional medical history: chronic sciatica Psychiatric history: no psych history - Past Surgical History Surgical History: other Additional surgical history: neurostimulator to back-permanent. bowel resection - Social History Smoking Status: Former smoker Smokeless Tobacco Status: No Alcohol use: none Drug use: none Medications and Allergies Budesonide/Formoterol 160/4.5 [Symbicort 160/4.5] 2 puff IH BIDR 02/19/18 [History] Albuterol Neb [Proventil Neb] 2.5 mg IH Q4HR PRN 05/10/19 [History] Albuterol Sulfate [Ventolin Hfa] 2 puff IH Q4H PRN 05/10/19 [History] Tiotropium [place] [Spiriva Respimat] 2 puff IH DAILY 05/11/19 [History] Allergy/AdvReac Type Severity Reaction Status Date / Time Cephalosporins Allergy Hives Verified 05/10/19 08:17 Penicillins Allergy Hives Verified 05/10/19 08:17 Sulfa (Sulfonamide Allergy Hives Verified 05/10/19 08:17 Antibiotics) ROS unobtainable: due to endotracheal tube, due to mental status Palliative Care-Exam - Constitutional Vitals: Temp Pulse Resp BP Pulse Ox 99.1 F 105 22 118/72 99 05/13/19 12:17 05/13/19 13:00 05/13/19 13:14 05/13/19 13:14 05/13/19 13:14 Exam: CONSTITUTIONAL/GENERAL: Opens eyes, does not respond to commands, critically ill-appearing, lying in bed. EYES: Pupils symmetric; non pinpoint, reactive. Ear/Nose/Mouth/Throat (EMNT): Patent, atraumatic, ET tube present. CARDIOVASCULAR: Tachycardia noted; generalized edema. RESPIRATORY: On Ventilator: TV 400, Peep 8, RR 22, 30% Fi02 GASTROINTESTINAL: Distended, soft. No tenderness noted to palpation. GENITOURINARY: Brooks catheter present. MUSCULOSKELETAL: Does not move extremities to command. NEUROLOGIC: Opens eyes, does not respond to commands. PSYCHIATRY: Unable to assess d/t mental stauts. Internal Medicine - CN: Reslt - Labs CBC & Chem 7: 05/13/19 10:44 05/13/19 10:44 Labs: Short CBC 05/12/19 05/12/19 05/12/19 Range/Units 13:34 16:18 21:00 WBC 5.8 5.7 5.4 (4.3-11.1) K/mcL Hgb 9.2 L 8.6 L 8.4 L (11.5-15.4) g/dL Hct 29.9 L 28.1 L 27.0 L (35.3-44.9) % Plt Count 122 L 103 L 91 L (140-400) K/mcL Neutrophils # 5.2 5.4 5.1 (1.6-8.9) K/mcL 05/13/19 05/13/19 Range/Units 03:00 10:44 WBC 6.1 8.1 (4.3-11.1) K/mcL Hgb 8.4 L 8.0 L (11.5-15.4) g/dL Hct 26.6 L 25.4 L (35.3-44.9) % Plt Count 76 L 70 L (140-400) K/mcL Neutrophils # 5.9 7.7 (1.6-8.9) K/mcL BMP 05/12/19 05/12/19 05/12/19 13:34 15:30 21:00 Sodium 142 141 141 Potassium 5.2 H 4.9 4.9 Chloride 107 107 104 Carbon Dioxide 18 L 19 L 19 L BUN 69 H 69 H 73 H Creatinine 3.41 H 3.36 H 3.46 H Glucose 59 L 137 H 108 H Calcium 6.8 L 6.4 L 6.7 L 05/13/19 05/13/19 03:00 10:44 Sodium 141 140 Potassium 4.6 4.4 Chloride 99 97 L Carbon Dioxide 22 L 29 BUN 74 H 74 H Creatinine 3.45 H 3.44 H Glucose 125 H 132 H Calcium 6.3 L 6.0 L* Liver Function 05/12/19 05/12/19 05/12/19 Range/Units 13:34 15:30 21:00 Total Bilirubin 0.4 0.3 0.4 (0.3-1.0) mg/dL AST 328 H 299 H 308 H (13-39) Units/L ALT 93 H 90 H 97 H (7-52) Units/L Alkaline Phosphatase 63 60 61 (34-104) Units/L Albumin 2.3 L 2.1 L 2.2 L (3.5-5.7) g/dL 05/13/19 05/13/19 Range/Units 03:00 10:44 Total Bilirubin 0.3 0.3 (0.3-1.0) mg/dL AST 312 H 286 H (13-39) Units/L ALT 103 H 104 H (7-52) Units/L Alkaline Phosphatase 76 100 (34-104) Units/L Albumin 2.1 L 2.1 L (3.5-5.7) g/dL - ABG Interpretation ABG results: ABG ABG pH 7.45 pH Units (7.32-7.45) 05/13/19 05:01 ABG pCO2 36 mmHg (35-45) 05/13/19 05:01 ABG pO2 124 mmHg (85-104) H 05/13/19 05:01 ABG O2 Saturation 99 % (95-98) H 05/13/19 05:01 PT/INR, D-dimer PT 10.3 Seconds (9.4-12.1) 05/13/19 03:00 D-Dimer 5867 ng/mLFEU (0-500) H 05/10/19 20:54 Consult Discharge Plan - Plan Referrals: Donna Patterson MD [Primary Care Provider] - Palliative Quality Palliative Quality: Screen for Code Status: Yes, Screen for Goals of Care: Yes, Screen for Pain: Yes, If Pain Regimen Started, Initiate Bowel Regimen: NA, Screen for Nausea/Vomitting: NA Code Status: 05/10/19 13:33 Resuscitation Status: Active [RES] Routine Comment: Resuscitation Status: Full Code 05/12/19 16:49 CODE [Resuscitation Status: Active] [RES] Routine Comment: Resuscitation Status: DNR-Comfort Care-Arrest
[2019-05-13] MEDS ORDERED: Glycopyrrolate 0.2 MG/ML VIAL IVP ONE (14:07)
--- NOTE | 2019-05-13 14:09 | Nephrology Progress Note ---
Date of Encounter: 05/13/19 Time of Encounter: 12:00 - Assessment and Plan (1) ARNOLDO (acute kidney injury) Current Visit: Yes Status: Acute (2) Acute respiratory failure Current Visit: Yes Status: Acute Qualifiers: Respiratory failure complication: hypoxia and hypercapnia Qualified Code(s): J96.01 - Acute respiratory failure with hypoxia; J96.02 - Acute respiratory failure with hypercapnia (3) Bilateral pneumonia Current Visit: Yes Status: Acute Qualifiers: Pneumonia type: due to unspecified organism Lung location: unspecified part of lung Qualified Code(s): J18.9 - Pneumonia, unspecified organism (4) Hyperkalemia Current Visit: Yes Status: Acute (5) Rhabdomyolysis Current Visit: Yes Status: Acute Qualifiers: Rhabdomyolysis type: non-traumatic Qualified Code(s): M62.82 - Rhabdomyolysis (6) Septic shock Current Visit: Yes Status: Acute Subjective Principal diagnosis: septic shock Interval history: Interim noted, pt seen and examined still intubated and sedated with family at bedside with DNR status established. Off pressors. Objective - Vital Signs Vital signs: Vital Signs Temp Pulse Resp BP Pulse Ox 05/13/19 13:14 22 118/72 99 05/13/19 13:00 105 22 118/72 99 05/13/19 12:17 99.1 F 05/13/19 12:00 105 22 125/72 98 05/13/19 11:21 22 129/79 96 05/13/19 11:00 108 22 129/79 96 05/13/19 10:00 110 22 129/74 96 05/13/19 09:26 22 125/77 97 05/13/19 09:00 110 22 125/77 97 05/13/19 08:04 97.0 F L 05/13/19 08:00 105 24 133/94 98 05/13/19 07:40 24 145/89 100 05/13/19 07:00 97 24 120/77 100 05/13/19 06:25 24 100 05/13/19 06:00 99 24 148/82 100 05/13/19 04:33 97 24 119/75 100 05/13/19 04:17 24 100 05/13/19 04:00 100 24 119/78 100 05/13/19 03:00 98 F 95 24 114/75 100 05/13/19 02:18 98 05/13/19 02:00 98 24 137/88 100 05/13/19 01:00 96 24 113/75 100 05/13/19 00:19 24 100 05/13/19 00:00 100 24 134/75 100 05/12/19 23:00 98.1 F 100 24 119/78 100 05/12/19 22:04 24 100 05/12/19 22:00 102 24 114/75 100 05/12/19 21:00 103 24 111/70 100 05/12/19 20:12 24 100 05/12/19 20:00 104 24 137/78 100 05/12/19 19:41 98.6 F 05/12/19 19:00 110 28 135/86 99 05/12/19 18:00 104 24 132/75 99 05/12/19 17:40 24 135/80 100 05/12/19 17:00 110 24 149/89 99 05/12/19 16:00 113 24 145/90 99 05/12/19 15:40 24 153/94 100 05/12/19 15:00 97.5 F L 112 24 153/94 99 05/12/19 14:00 112 24 157/94 99 Intake and Output 05/12/19 05/13/19 05/13/19 23:59 07:59 15:59 Intake Total 1560 / 3205.5 1250 / 2600 1350 / 2600 Output Total 85 / 160 50 / 130 80 / 130 Balance 1475 / 3045.5 1200 / 2470 1270 / 2470 Intake: IV Fluids 1560 / 3205.5 1250 / 2600 1350 / 2600 FentaNYL (PF) 1,000 MCG In 0.9 200 / 300 100 / 100 % Sodium Chloride 80 ML @ 50 MCG/HR 5 mls/hr IVC CONT [facility] Rx #:[id number] Sodium Bicarbonate 150 MEQ In 1150 / 1150 1150 / 2300 1150 / 2300 Dextrose 5% 1,000 ML @ 150 mls/ hr IVC .[id number] [facility] Rx#: [id number] Calcium Chloride 1,000 MG In 0. 110 / 110 9 % Sodium Chloride 100 ML @ 100 mls/hr IVPB ONCE ONE Rx#: [id number] Flagyl Premix 500 MG/100 ML 500 100 / 300 100 / 200 100 / 200 mg In 100 ml @ 100 mls/hr IVPB Q8HR [facility] Rx#:[id number] Output: Catheter 85 / 110 50 / 130 80 / 130 Other: Weight 60 kg Blood Glucose* 118 139 - Lab 05/13/19 10:44 05/13/19 10:44 Most recent lab results 05/13/19 05/13/19 05/13/19 03:00 05:01 10:44 ABG pH 7.45 ABG pCO2 36 ABG pO2 124 H ABG HCO3 25 ABG O2 Saturation 99 H Calcium 6.3 L 6.0 L* Phosphorus 6.7 H Magnesium 2.2 Consult Discharge Plan - Plan Referrals: Donna Patterson MD [Primary Care Provider] -
[2019-05-13] MEDS ORDERED: *HR* FentaNYL (PF) 100 MCG/2 ML VIAL IVP ONE (14:12)
[2019-05-13] MEDS ORDERED: *HR* LORazepam 2 MG/ML VIAL IVP PRN (14:12)
[2019-05-13] MEDS ORDERED: FentaNYL (PF) 1,000 MCG in 0.9 % Sodium Chloride 80 ML IVC SCH (14:18)
[2019-05-13] MEDS ORDERED: *HR* LORazepam 2 MG/ML VIAL ONE (14:19)
[2019-05-13] MEDS ORDERED: *HR* Rocuronium Bromide 50 MG/5 ML VIAL IVC ONE (14:46)
[2019-05-13] MEDS ORDERED: Aminoglycoside Consult 1 EACH MC ONE (14:46)
--- NOTE | 2019-05-13 15:02 | Death Note ---
Discharge Sum: Summary - Date and Time Date of admission: 05/10/19 11:42 Date of : 05/13/19 Time of : 14:47 - Summary Details: Zenaida Garcia is a 63 yo female with a past medical history of COPD, diverti culitis, who presented with SOB. She was admitted and treated for Acute respiratory failure secondary to community-acquired pneumonia. Condition was also called Nilson by severe sepsis, COPD exacerbation, AK I, lactic acidosis, leukopenia, coagulopathy. Her story status deteriorated shortly after admission, and she was intubated and transferred to the ICU. Nephrology was consulted for treatment of acute kidney injury. Acute care surgery was consulted for possible colitis noted on CT abdomen. She deteriorated deteriorated through her stay in ICU. Palliative care was consulted, uncles care discussions were had with family at bedside. Patient's son who is currently incarcerated in [place] and was informed of his mother's condition and her poor prognosis. On 05/13/19 with agreement from the patient's son and nephew, agreement was made to focus on comfort care. Patient was extubated in shortly after went into asystole. At 14:47 patient had no heart or lung sounds, pupils were fixed and dilated, and no response to external stimuli. - Additional Data Confirmation of as documented by pronouncing clinician: no pulse, no respirations, no heart sounds, pupils fixed and dilated Family: at bedside Attending/PCP notified?: Yes Attending physician: Rivera Cornejo Was code activated?: No Discharge Sum: Diag - PCOD Probable Cause of : Respiratory arrest Discharge Sum: Prov - Provider Primary care physician: Donna Patterson Admitting clinician: Rivera Cornejo Consults: 05/10/19 19:14 Consult to Pulmonology [CONS] Routine Consulting Provider: [facility] [place] Reason for Consult: Resp. failure, PNA, Sepsis, Intubated/Mechanically ventilated. Time Notified: 19:14 Call Completed: No 05/11/19 02:08 Consult to Vascular Surgery [CONS] Stat Consulting Provider: Vascular Surgery Theodora Reason for Consult: Bilateral lower extremity mottling, diminished pulses. Time Notified: 02:08 Call Completed: No 05/11/19 05:32 Consult to Nephrology [CONS] Stat Consulting Provider: Kidney Theodora/STEVEN/CODY/ALISHA Reason for Consult: Hyperkalemia in the setting of acute kidney injury Time Notified: 05:32 Call Completed: Yes 05/11/19 05:39 Consult to Neurology [CONS] Stat Consulting Provider: [facility] Reason for Consult: New onset seizure Time Notified: 05:39 Call Completed: No 05/11/19 11:48 Consult to Surgery [CONS] Stat Consulting Provider: Delmar Gill Reason for Consult: Possible ischemic colitis, septic shock 2/2 PNA. Call Completed: Yes 05/12/19 08:06 Consult to Farm Worker [CONS] Routine Reason for SW Consult: poor prognosis, septic shock, PNA, multiorgan failure, son incarcerated, no POA 05/13/19 08:00 Consult to Palliative Care [CONS] Routine Comment: Consulting Provider: Palliative Care Theodora Reason for Consult: Family meeting to discuss life goals and possible withdraw of care. Call Completed: No Pronouncing clinician: Aden Hamilton
--- NOTE | 2019-05-14 15:48 | Electrocardiograph Report ---
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 Electronically Signed On 05-14-2019 15:46:47 EDT by Maggie Nunez
--- NOTE | 2019-05-14 15:49 | Electrocardiograph Report ---
[address] [address] Test Date: 2019-05-11 Pat Name: Zenaida Garcia Department: 109 Room: [facility] Gender: F House Calls Nurse Practitioner: CASSANDRA : 1955 Requested By: Michael Flores Order Number: [id number] Reading MD: Maggie Nunez Measurements Intervals [place] Rate: 122 P: 79 CO: 174 QRS: 96 QRSD: 102 T: 55 QT: 300 QTc: 373 Interpretive Statements SINUS TACHYCARDIA BORDERLINE RIGHT AXIS DEVIATION ABNORMAL RHYTHM ECG V1 not suitable for interpretation Electronically Signed On 05-14-2019 15:47:48 EDT by Maggie Nunez
== END 2019-05-13 14:47 | disposition expired | DRG 720 ==
LOC: 2NNU 11:42 → SUATTDRO 11:42 → ICNU 17:33
PROVIDERS: ADMIT Internal Medicine; ATTEND Internal Medicine